=== PATIENT | female | born 1980 | race Caucasian/White ===

== ENCOUNTER 2022-08-15 15:30 | Outpatient (CLI) | payer MEDICAID, SELFPAY | END 2022-08-15 15:31 | disposition home or self-care (01) | PROVIDERS: Visit Provider Family Medicine | DX: S09.93XA Unspecified injury of face, initial encounter (principal); W01.0XXA Fall on same level from slipping, tripping and stumbling without subsequent striking against object, initial encounter; Y92.009 Unspecified place in unspecified non-institutional (private) residence as the place of occurrence of the external cause | CPT/HCPCS: A0998 ==

== ENCOUNTER 2022-11-11 20:39 | Emergency (ER) | payer SELFPAY ==
[2022-11-11 20:54] VITALS: BP 171/97; PULSE 102; RESP 20; TEMP 36.3; O2SAT 86
--- NOTE | 2022-11-11 21:06 | ED.NURSE ---
Pt brought back to [facility].
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
[2022-11-11 21:56] VITALS: BP 143/80; PULSE 88; O2SAT 86
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
== END 2022-11-11 23:15 | disposition home or self-care (01) ==
PROVIDERS: Emergency Provider Emergency Medicine; PCP Family Medicine
DX: M54.9 Dorsalgia, unspecified (principal); V43.62XA Car passenger injured in collision with other type car in traffic accident, initial encounter
CPT/HCPCS: 72131; 99283; 99284

== ENCOUNTER 2023-01-15 14:32 | Outpatient (CLI) | payer MEDICAID, SELFPAY | END 2023-01-15 14:33 | disposition home or self-care (01) | LOC: AMB 01-26 04:07 | PROVIDERS: PCP Family Medicine; Visit Provider Family Medicine | DX: R06.09 Other forms of dyspnea (principal); R41.82 Altered mental status, unspecified | CPT/HCPCS: A0425; A0427 ==

== ENCOUNTER 2023-01-15 15:28 | Emergency (ER) | payer MEDICAID, SELFPAY ==
[2023-01-15] VITALS (54 sets, daily range): BP systolic 86–166; BP diastolic 25–104; PULSE 82–126; RESP 11–32; TEMP 36.1; O2SAT 80–99; BMI 43.1
--- NOTE | 2023-01-15 | CRLHL7_ITS ---
For Patients: As a result of the Century Cures Act, medical imaging exams and procedure reports are released immediately into your electronic medical record. You may view this report before your referring provider. If you have questions, please contact your health care provider. INDICATION: Intubation. TECHNIQUE: Chest 1 views. COMPARISON: Same day. FINDINGS: Endotracheal tube with tip 1.8 cm above the ju. Lungs: Normal lung volume. Stable basilar heterogeneous airspace disease. Vascular redistribution. Pleura: Stable pleural spaces. Heart and Mediastinum: Normal heart size. The great vessels of the thorax are unremarkable. Bones: Stable osseous structures. IMPRESSION: Endotracheal tube with tip 1.8 cm above the ju. Dictated by Justin De Jesus MD @ 01/15/2023 7:41:07 PM (Electronically Signed)
--- NOTE | 2023-01-15 15:46 | CRLHL7_ITS ---
For Patients: As a result of the Century Cures Act, medical imaging exams and procedure reports are released immediately into your electronic medical record. You may view this report before your referring provider. If you have questions, please contact your health care provider. INDICATION: Shortness of breath. TECHNIQUE: Chest 1 views. COMPARISON: None. FINDINGS: Cardiovasculature and mediastinum: Heart size and vasculature are normal in caliber and appearance. Lungs and pleural spaces: Central bibasilar opacity consistent with pneumonia in the correct clinical setting. Bones and soft tissues: No significant findings. IMPRESSION: Central bibasilar opacity consistent with pneumonia in the correct clinical setting. Aspiration pneumonitis is included in the differential. Dictated by Jimmy Bundy MD @ 01/15/2023 4:52:40 PM (Electronically Signed)
--- NOTE | 2023-01-15 16:12 | ED.GENADULT ---
HPI - General Adult General Chief complaint: Shortness of Breath/Dyspnea Stated complaint: Low O2 Time Seen by Provider: 01/15/23 15:44 Source: EMS and RN notes reviewed Mode of arrival: EMS Limitations: altered mental status History of Present Illness HPI narrative: Patient is a 42-year-old woman brought in by EMS with a history of drug alcohol abuse, she lives at the [facility] in [place] which is an assisted living. They apparently went to check on her this afternoon found her to be somewhat lethargic, checked an O2 sat and it was in the 70s on room air. EMS was called. She was noted to be wheezy, was given a DuoNeb, sats briefly improved. She was in the mid 90s on 10 L of oxygen by face mask. She was not able to provide any history when I initially saw her, although she did open her eyes and make noises when asked her questions. Later on, she became more alert, she still was not overly forthcoming and answers to questions but was able to verbalize that she did not want me to take her credit card or id or pill bottle which she had talked into her brought, she said that she wanted to hold onto her own things. She did not answer questions regarding the pain, she denies recent illness, cough, fever. She denies a history of heart failure or being on a diuretic. Related Data Allergies Allergy/AdvReac Type Severity Reaction Status Date / Time No Known Drug Allergies Allergy Verified 01/15/23 15:30 Review of Systems Status of ROS: Reports: unobtainable due to mental status [facility] Social History Smoking Status: Current every day smoker What tobacco products do you use: cigarettes Do you use any of these nicotine containing products: None Second hand tobacco smoke exposure: No How often do you have a drink containing alcohol: 2-3 times a week AUDIT-C Alcohol total score: 3 Non-prescribed substance use: amphetamines/methamphetamines Non-prescribed substance use details: Unable to give accurate history regarding current use service: No Exam Narrative: Exam Narrative: Vital signs as noted above. In general, an somnolent, obese woman, respiratory distress. Head: Normocephalic, atraumatic. Eyes: Pupils are midpoint and reactive. Conjunctivae are normal. ENT: Mucous membranes are moist. Neck: Supple without lymphadenopathy. No stridor. Heart: Tachycardic and regular, no obvious murmur although exam was somewhat limited due to respiratory noise. Lungs: Anteriorly she has some crackles, posterior, she has diffuse wheezes and rhonchi, no obvious rales. Tachypneic. Abdomen: Obese and soft, seemingly nontender. Extremities: Her legs are large, she does not have pitting edema but may have a little bit of nonpitting edema in her feet. Pulses are intact. Distal CMS is normal. Neurologic: Patient is somnolent, responds to voice, opens her eyes, as mentioned she is able to verbalize things when she chooses, if left to herself she does doze off. Affect: Not applicable Skin: Slightly diaphoretic, no obvious rashes. Const: Vital Signs, click to edit/add: Vital Signs - 24 hr 01/15/23 15:31 01/15/23 15:44 01/15/23 15:44 Temperature 97.0 F L Pulse Rate Pulse Rate [Right Pulse Oximeter] 105 H Respiratory Rate 32 H Blood Pressure Blood Pressure [Le ft Upper Arm] 96/67 Pulse Oximetry 93 93 93 Oxygen Delivery Me thod Non Rebreather Mas k Non Rebreather Mas k Oxygen Flow Rate 10 Fraction of Inspir ed Oxygen 01/15/23 16:30 01/15/23 17:04 01/15/23 17:20 Temperature Pulse Rate 99 105 H Pulse Rate [Right Pulse Oximeter] Respiratory Rate Blood Pressure Blood Pressure [Le ft Upper Arm] Pulse Oximetry 95 93 Oxygen Delivery Me thod Oxygen Flow Rate Fraction of Inspir ed Oxygen 0.40 01/15/23 17:30 01/15/23 17:34 01/15/23 17:37 Temperature Pulse Rate 112 H 108 H 106 H Pulse Rate [Right Pulse Oximeter] Respiratory Rate Blood Pressure 86/75 L Blood Pressure [Le ft Upper Arm] Pulse Oximetry 92 87 L 97 Oxygen Delivery Me thod Oxygen Flow Rate Fraction of Inspir ed Oxygen 01/15/23 17:43 01/15/23 17:45 01/15/23 17:46 Temperature Pulse Rate 99 95 95 Pulse Rate [Right Pulse Oximeter] Respiratory Rate Blood Pressure 97/70 95/25 L Blood Pressure [Le ft Upper Arm] Pulse Oximetry 96 96 97 Oxygen Delivery Me thod Oxygen Flow Rate Fraction of Inspir ed Oxygen 01/15/23 17:47 01/15/23 18:00 01/15/23 18:01 Temperature Pulse Rate 96 87 89 Pulse Rate [Right Pulse Oximeter] Respiratory Rate Blood Pressure 109/70 106/68 Blood Pressure [Le ft Upper Arm] Pulse Oximetry 96 95 94 Oxygen Delivery Me thod Oxygen Flow Rate Fraction of Inspir ed Oxygen 01/15/23 18:15 01/15/23 18:20 01/15/23 18:30 Temperature Pulse Rate 87 83 85 Pulse Rate [Right Pulse Oximeter] Respiratory Rate Blood Pressure 104/71 Blood Pressure [Le ft Upper Arm] Pulse Oximetry 93 94 94 Oxygen Delivery Me thod Oxygen Flow Rate Fraction of Inspir ed Oxygen 01/15/23 18:31 01/15/23 18:46 01/15/23 18:50 Temperature Pulse Rate 82 120 H Pulse Rate [Right Pulse Oximeter] Respiratory Rate Blood Pressure 108/75 126/103 H Blood Pressure [Le ft Upper Arm] Pulse Oximetry 93 90 Oxygen Delivery Me thod Oxygen Flow Rate Fraction of Inspir ed Oxygen 01/15/23 18:51 01/15/23 18:54 01/15/23 18:59 Temperature Pulse Rate 123 H 126 H 126 H Pulse Rate [Right Pulse Oximeter] Respiratory Rate 11 L Blood Pressure 166/102 H 154/104 H 144/101 H Blood Pressure [Le ft Upper Arm] Pulse Oximetry 94 97 90 Oxygen Delivery Me thod Oxygen Flow Rate Fraction of Inspir ed Oxygen 01/15/23 19:00 01/15/23 19:01 01/15/23 19:06 Temperature Pulse Rate 125 H 125 H 114 H Pulse Rate [Right Pulse Oximeter] Respiratory Rate 14 13 12 Blood Pressure 142/86 H 110/75 Blood Pressure [Le ft Upper Arm] Pulse Oximetry 92 97 98 Oxygen Delivery Me thod Oxygen Flow Rate Fraction of Inspir ed Oxygen 01/15/23 19:11 01/15/23 19:15 01/15/23 19:16 Temperature Pulse Rate 120 H 120 H 118 H Pulse Rate [Right Pulse Oximeter] Respiratory Rate 19 14 18 Blood Pressure 125/87 114/73 Blood Pressure [Le ft Upper Arm] Pulse Oximetry 80 L 92 93 Oxygen Delivery Me thod Oxygen Flow Rate Fraction of Inspir ed Oxygen 01/15/23 19:21 01/15/23 19:22 01/15/23 19:26 Temperature Pulse Rate 108 H 112 H 114 H Pulse Rate [Right Pulse Oximeter] Respiratory Rate 16 16 17 Blood Pressure 90/54 L 92/56 L 101/68 Blood Pressure [Le ft Upper Arm] Pulse Oximetry 94 94 94 Oxygen Delivery Me thod Oxygen Flow Rate Fraction of Inspir ed Oxygen 01/15/23 19:30 01/15/23 19:31 01/15/23 19:36 Temperature Pulse Rate 116 H 115 H 112 H Pulse Rate [Right Pulse Oximeter] Respiratory Rate 18 18 23 Blood Pressure 113/68 103/60 Blood Pressure [Le ft Upper Arm] Pulse Oximetry 94 94 95 Oxygen Delivery Me thod Oxygen Flow Rate Fraction of Inspir ed Oxygen 01/15/23 19:37 01/15/23 19:41 01/15/23 19:45 Temperature Pulse Rate 111 H 112 H 120 H Pulse Rate [Right Pulse Oximeter] Respiratory Rate 23 23 23 Blood Pressure 106/64 Blood Pressure [Le ft Upper Arm] Pulse Oximetry 94 95 96 Oxygen Delivery Me thod Oxygen Flow Rate Fraction of Inspir ed Oxygen 01/15/23 19:46 01/15/23 19:51 01/15/23 19:56 Temperature Pulse Rate 117 H 111 H 107 H Pulse Rate [Right Pulse Oximeter] Respiratory Rate 23 23 23 Blood Pressure 105/73 92/59 L 96/54 L Blood Pressure [Le ft Upper Arm] Pulse Oximetry 96 96 97 Oxygen Delivery Me thod Oxygen Flow Rate Fraction of Inspir ed Oxygen 01/15/23 20:00 01/15/23 20:01 01/15/23 20:06 Temperature Pulse Rate 106 H 107 H 105 H Pulse Rate [Right Pulse Oximeter] Respiratory Rate 23 23 23 Blood Pressure 90/63 91/55 L Blood Pressure [Le ft Upper Arm] Pulse Oximetry 98 98 98 Oxygen Delivery Me thod Oxygen Flow Rate Fraction of Inspir ed Oxygen 01/15/23 20:11 01/15/23 20:15 01/15/23 20:16 Temperature Pulse Rate 105 H 104 H 104 H Pulse Rate [Right Pulse Oximeter] Respiratory Rate 23 23 23 Blood Pressure 92/57 L 92/59 L Blood Pressure [Le ft Upper Arm] Pulse Oximetry 98 98 98 Oxygen Delivery Me thod Oxygen Flow Rate Fraction of Inspir ed Oxygen 08/17/23 20:21 01/15/23 20:24 01/15/23 20:26 Temperature Pulse Rate 104 H 104 H 103 H Pulse Rate [Right Pulse Oximeter] Respiratory Rate 23 23 23 Blood Pressure 95/60 93/60 92/60 Blood Pressure [Le ft Upper Arm] Pulse Oximetry 98 99 98 Oxygen Delivery Me thod Oxygen Flow Rate Fraction of Inspir ed Oxygen 01/15/23 20:30 01/15/23 20:31 01/15/23 20:36 Temperature Pulse Rate 103 H 103 H 102 H Pulse Rate [Right Pulse Oximeter] Respiratory Rate 23 23 23 Blood Pressure 99/59 L 98/55 L Blood Pressure [Le ft Upper Arm] Pulse Oximetry 98 99 99 Oxygen Delivery Me thod Oxygen Flow Rate Fraction of Inspir ed Oxygen 01/15/23 20:41 01/15/23 20:45 Temperature Pulse Rate 101 H Pulse Rate [Right Pulse Oximeter] Respiratory Rate 23 23 Blood Pressure 100/64 Blood Pressure [Le ft Upper Arm] Pulse Oximetry 97 Oxygen Delivery Me thod Oxygen Flow Rate Fraction of Inspir ed Oxygen Documenting provider has reviewed patient's vital signs: yes Course Course Hospital Course: On initial arrival RT was called and she was switched from oxygen by face mask to BiPAP initially at 15/10, she is increased to 18/10 on 50% FiO2 at this point. Her O2 sats are in the mid 90s and her breathing is less labored. Labs pending. Portable chest x-ray by my review looks consistent with pulmonary edema. Bedside ultrasound is challenging given body habitus and positioning, but I do not see evidence of pericardial effusion, right ventricular dilation, or obvious significant decreased left ventricular function. I have ordered an albuterol neb as well as 20 mg of Lasix. BiPAP I think his improved her status, I am hesitant to start nitroglycerin at this point given tenuous blood pressures of 100-120 systolic. Radiology read of her x-ray was of bilateral central opacities more consistent with pneumonia the right setting or aspiration pneumonitis could be a consideration as well. Clinically aspiration pneumonitis certainly is possible, she may have overdosed on some substance or another. I tried to talk with her about her drug use, she initially said she did know what I was talking about, then she said that she ?takes whenever she feels like taking? but was not more specific than that. She declined to give me any information as to whether she has used drugs in the past day or 2. Her white blood cell count returned elevated at 15, lactate was normal, CRP was elevated at 44. Her BNP was also elevated at 4300, I did initially give her 500 mL of normal saline after the radiology read was more consistent with pneumonitis, but I stop short of giving her more fluids based on the significantly elevated BNP, it was difficult to see her IVC again due to body habitus and difficulty in positioning and cooperation. Plan had been to admit her to the hospital here, cultures were drawn, she was given Zosyn, and had been stable on BiPAP. However, she became more alert, she was no longer willing to wear the BiPAP, she took that off, and then actually was becoming increasingly difficult to manage, would not keep oxygen on, sat monitor, kept trying to get out of bed. Therefore, I gave her a mg of Ativan. Shortly after that she became significantly less responsive. I repeated a blood gas, she had a mild acidosis at that point with a pH of 7.3, pCO2 was up to 59. I did put her back on BiPAP for a little bit, I then gave her 1st Narcan, 1 mg and when there was no response to that I gave her flumazenil to reverse the Ativan. Initially she did not respond any of that, but about 10-15 minutes later she started to wake up. Then she became extremely agitated and again very difficult to manage in terms of oxygen, BiPAP etcetera. Her O2 sats on room air were in the upper 70s to low 80s, she clearly needed to be able to be managed in terms of oxygenation and ventilation and therefore decision was made to intubate. Drug screen did return negative. When she was more sedated, we were able to get the pill bottle that she had on her person, and she had 3 Suboxone tablets in that bottle. It is possible that she took an unintentional or intentional overdose of Suboxone. Procedure note: Patient was on oximetry, end-tidal CO2, passive oxygenation by nasal cannula. She was given ketamine 100 mg IV initially just to get her under control enough that we could pre oxygenate her. We put in a nasal airway, and she was preoxygenated to an O2 sat of 98%. She was positioned, and then given 125 mg of succinylcholine IV. She was then intubated with a 7.5 tube without complication. This was confirmed by chest x-ray, end-tidal CO2, as well as breath sounds. Initially she did have decreased sounds on the left and so the tube was pulled back a little bit with good aeration of both sides. An NG tube was placed. We had already placed a [place]. She received additional ketamine for sedation initially as the flumazenil had not yet worn off. She also had 10 mg of vecuronium and was placed arm the ventilator. She did have thick purulent secretions from her ET tube in these were suctioned. She tolerated intubation overall well, no hypoxia or significant hypotension was noted. We did have Levophed at the bedside but did not end up needing to start that. She had 2 additional doses of ketamine, and after the flumazenil had had an hour so to wear off I did give her 2 mg of Versed as well. Urinalysis was unremarkable. Aspirin Tylenol and alcohol levels were negative. COVID was negative. Troponin was 0.01. Her EKG when she initially arrived did not show any significant findings. Sinus tachycardia. She was accepted at [facility], there was a bed delay, we tried to find other available beds but by the time which I heard back from [facility] had accepted her and she was transferred by air to [facility] ICU. Critical care time 120 minutes. Vital Signs Vital signs: Initial Vital Signs Temperature 97.0 F L 01/15/23 15:31 Temperature Source Temporal Artery Scan 01/15/23 15:31 Pulse Rate 105 H 01/15/23 15:31 Pulse Rhythm Regular 01/15/23 15:31 Pulse Strength 3+ Normal 01/15/23 15:31 Respiratory Rate 32 H 01/15/23 15:31 Blood Pressure 96/67 01/15/23 15:31 Blood Pressure Mean 76 01/15/23 15:31 Blood Pressure Position Supine 01/15/23 15:31 Pulse Oximetry 93 01/15/23 15:31 Oxygen Delivery Method Non Rebreather Mask 01/15/23 15:31 Vital Signs Temperature 97.0 F L 01/15/23 15:31 Pulse Rate 105 H 01/15/23 15:31 Respiratory Rate 32 H 01/15/23 15:31 Blood Pressure 96/67 01/15/23 15:31 Pulse Oximetry 93 01/15/23 15:31 Oxygen Delivery Method Non Rebreather Mask 01/15/23 15:31 Temperature 97.0 F L 01/15/23 15:31 Pulse Rate 101 H 01/15/23 20:41 Respiratory Rate 23 01/15/23 20:45 Blood Pressure 100/64 01/15/23 20:41 Pulse Oximetry 97 01/15/23 20:41 Oxygen Delivery Method Non Rebreather Mask 01/15/23 15:44 Oxygen Flow Rate 10 01/15/23 15:44 Fraction of Inspired Oxygen 0.40 01/15/23 16:30 Medical Decision Making Lab Data Labs: Lab Results 01/15/23 01/15/23 01/15/23 Range/Units 16:00 16:00 16:00 WBC 15.08 H (4.50-11.00) K/uL RBC 4.22 (4.00-5.20) m/uL Hgb 10.6 L (12.0-16.0) gm/dL Hct 35.2 (33.0-51.0) % MCV 83 (80-100) fL MCH 25 L (26-34) pg MCHC 30 L (32-36) gm/dL RDW Coeff of Maeve 21.2 H (11.5-15.5) % Plt Count 358 (140-440) K/uL Neut % (Auto) 78.3 H (42.0-72.0) % Lymph % (Auto) 14.5 L (20-44) % [place] % (Auto) 6.7 (0.0-11.0) % Eos % (Auto) 0.1 (0.0-7.0) % Baso % (Auto) 0.1 (0.0-3.0) % Neut # (Auto) 11.80 H (1.7-7.0) K/uL Lymph # (Auto) 2.20 (0.90-2.90) K/uL [place] # (Auto) 1.00 H (0.00-0.90) K/UL Eos # (Auto) 0.00 (0.00-0.50) K/uL Baso # (Auto) 0.00 (0.00-0.30) K/uL Abs Immat Gran (auto) 0.00 (0.00-0.30) K/uL Imm/Tot Granulo (auto) 0.3 % D-Dimer Quant (PE/DVT) 2.00 H (0.00-0.50) ug/ml VBG pH 7.324 (7.32-7.43) VBG pCO2 56 H (40-50) mmHG VBG pO2 53.1 H (25-47) mmHG VBG HCO3 29 H (21-28) mmol/L Sodium 138 (135-149) mmol/L Potassium 3.3 L (3.6-5.1) mmol/L Chloride 100 (96-114) mmol/L Carbon Dioxide 28 (20-32) mmol/L BUN 33 H (5-24) mg/dL Creatinine 1.4 (0.5-1.5) mg/dL Estimated Creat Clear 50.39 Estimated GFR 48 ml/min Glucose 96 (60-115) mg/dL Lactate 1.1 (0.5-1.9) mmol/L Calcium 8.6 (8.4-10.6) mg/dL Total Bilirubin 0.7 Cancelled (0.1-1.5) mg/dL Direct Bilirubin 0.4 Cancelled (0.0-0.5) mg/dL AST 41 H (12-35) U/L ALT (4-35) U/L Alkaline Phosphatase (40-150) U/L C-Reactive Protein (0.5-1.0) mg/dL NT-Pro-B Natriuret Pep pg/mL Total Protein (6.0-8.3) g/dL Albumin (3.3-5.0) g/dL Procalcitonin (<0.50) ng/mL TSH (0.270-4.200) uIU/mL Urine Color (Yellow) Urine Appearance (Clear) Urine pH (5.0-8.5) Ur Specific [place] (1.000-1.030) Urine Protein (Negative) Urine Glucose (UA) (Negative) Urine Ketones (Negative) Urine Blood (Negative) Urine Nitrite (Negative) Urine Bilirubin (Negative) Urine Urobilinogen (0.2-1.0) Ur Leukocyte Esterase (Negative) Urine RBC (0-2) Urine WBC (0-5) Ur Squamous Epith Cells (None-Few) Amorphous Sediment (None) Urine Bacteria (None) Salicylates (1.0-10) mg/dL Urine Opiates Screen (Negative) Ur Oxycodone Screen (Negative) Urine Methadone Screen (Negative) Ur Propoxyphene Screen (Negative) Acetaminophen (10.0-30.0) ug/mL Ur Barbiturates Screen (Negative) U Tricyclic Antidepress (Negative) Ur Phencyclidine Scrn (Negative) Ur Amphetamines Screen (Negative) U Methamphetamines Scrn (Negative) U Benzodiazepines Scrn (Negative) Urine Cocaine Screen (Negative) U Marijuana (THC) Screen (Negative) Ur Drug Screen Comment Ethyl Alcohol (0.01-0.03) % SARS-CoV-2 (PCR) (Negative) Influenza Type A (PCR) (Negative) Influenza Type B (PCR) (Negative) RSV (PCR) (Negative) Lab Acknowledgement POC Troponin I (0.01-0.04) ng/ml 01/15/23 01/15/23 01/15/23 Range/Units 16:00 16:00 16:00 WBC (4.50-11.00) K/uL RBC (4.00-5.20) m/uL Hgb (12.0-16.0) gm/dL Hct (33.0-51.0) % MCV (80-100) fL MCH (26-34) pg MCHC (32-36) gm/dL RDW Coeff of Maeve (11.5-15.5) % Plt Count (140-440) K/uL Neut % (Auto) (42.0-72.0) % Lymph % (Auto) (20-44) % [place] % (Auto) (0.0-11.0) % Eos % (Auto) (0.0-7.0) % Baso % (Auto) (0.0-3.0) % Neut # (Auto) (1.7-7.0) K/uL Lymph # (Auto) (0.90-2.90) K/uL [place] # (Auto) (0.00-0.90) K/UL Eos # (Auto) (0.00-0.50) K/uL Baso # (Auto) (0.00-0.30) K/uL Abs Immat Gran (auto) (0.00-0.30) K/uL Imm/Tot Granulo (auto) % D-Dimer Quant (PE/DVT) (0.00-0.50) ug/ml VBG pH (7.32-7.43) VBG pCO2 (40-50) mmHG VBG pO2 (25-47) mmHG VBG HCO3 (21-28) mmol/L Sodium (135-149) mmol/L Potassium (3.6-5.1) mmol/L Chloride (96-114) mmol/L Carbon Dioxide (20-32) mmol/L BUN (5-24) mg/dL Creatinine (0.5-1.5) mg/dL Estimated Creat Clear Estimated GFR ml/min Glucose (60-115) mg/dL Lactate (0.5-1.9) mmol/L Calcium (8.4-10.6) mg/dL Total Bilirubin (0.1-1.5) mg/dL Direct Bilirubin (0.0-0.5) mg/dL AST Cancelled (12-35) U/L ALT 35 Cancelled (4-35) U/L Alkaline Phosphatase 135 Cancelled (40-150) U/L C-Reactive Protein 44.9 H (0.5-1.0) mg/dL NT-Pro-B Natriuret Pep pg/mL Total Protein (6.0-8.3) g/dL Albumin (3.3-5.0) g/dL Procalcitonin (<0.50) ng/mL TSH (0.270-4.200) uIU/mL Urine Color (Yellow) Urine Appearance (Clear) Urine pH (5.0-8.5) Ur Specific [place] (1.000-1.030) Urine Protein (Negative) Urine Glucose (UA) (Negative) Urine Ketones (Negative) Urine Blood (Negative) Urine Nitrite (Negative) Urine Bilirubin (Negative) Urine Urobilinogen (0.2-1.0) Ur Leukocyte Esterase (Negative) Urine RBC (0-2) Urine WBC (0-5) Ur Squamous Epith Cells (None-Few) Amorphous Sediment (None) Urine Bacteria (None) Salicylates (1.0-10) mg/dL Urine Opiates Screen (Negative) Ur Oxycodone Screen (Negative) Urine Methadone Screen (Negative) Ur Propoxyphene Screen (Negative) Acetaminophen (10.0-30.0) ug/mL Ur Barbiturates Screen (Negative) U Tricyclic Antidepress (Negative) Ur Phencyclidine Scrn (Negative) Ur Amphetamines Screen (Negative) U Methamphetamines Scrn (Negative) U Benzodiazepines Scrn (Negative) Urine Cocaine Screen (Negative) U Marijuana (THC) Screen (Negative) Ur Drug Screen Comment Ethyl Alcohol (0.01-0.03) % SARS-CoV-2 (PCR) (Negative) Influenza Type A (PCR) (Negative) Influenza Type B (PCR) (Negative) RSV (PCR) (Negative) Lab Acknowledgement POC Troponin I (0.01-0.04) ng/ml 01/15/23 01/15/23 01/15/23 Range/Units 16:00 16:00 16:00 WBC (4.50-11.00) K/uL RBC (4.00-5.20) m/uL Hgb (12.0-16.0) gm/dL Hct (33.0-51.0) % MCV (80-100) fL MCH (26-34) pg MCHC (32-36) gm/dL RDW Coeff of Maeve (11.5-15.5) % Plt Count (140-440) K/uL Neut % (Auto) (42.0-72.0) % Lymph % (Auto) (20-44) % [place] % (Auto) (0.0-11.0) % Eos % (Auto) (0.0-7.0) % Baso % (Auto) (0.0-3.0) % Neut # (Auto) (1.7-7.0) K/uL Lymph # (Auto) (0.90-2.90) K/uL [place] # (Auto) (0.00-0.90) K/UL Eos # (Auto) (0.00-0.50) K/uL Baso # (Auto) (0.00-0.30) K/uL Abs Immat Gran (auto) (0.00-0.30) K/uL Imm/Tot Granulo (auto) % D-Dimer Quant (PE/DVT) (0.00-0.50) ug/ml VBG pH (7.32-7.43) VBG pCO2 (40-50) mmHG VBG pO2 (25-47) mmHG VBG HCO3 (21-28) mmol/L Sodium (135-149) mmol/L Potassium (3.6-5.1) mmol/L Chloride (96-114) mmol/L Carbon Dioxide (20-32) mmol/L BUN (5-24) mg/dL Creatinine (0.5-1.5) mg/dL Estimated Creat Clear Estimated GFR ml/min Glucose (60-115) mg/dL Lactate (0.5-1.9) mmol/L Calcium (8.4-10.6) mg/dL Total Bilirubin (0.1-1.5) mg/dL Direct Bilirubin (0.0-0.5) mg/dL AST (12-35) U/L ALT (4-35) U/L Alkaline Phosphatase (40-150) U/L C-Reactive Protein Cancelled (0.5-1.0) mg/dL NT-Pro-B Natriuret Pep 4300 Cancelled pg/mL Total Protein 7.4 Cancelled (6.0-8.3) g/dL Albumin 3.7 (3.3-5.0) g/dL Procalcitonin (<0.50) ng/mL TSH (0.270-4.200) uIU/mL Urine Color (Yellow) Urine Appearance (Clear) Urine pH (5.0-8.5) Ur Specific [place] (1.000-1.030) Urine Protein (Negative) Urine Glucose (UA) (Negative) Urine Ketones (Negative) Urine Blood (Negative) Urine Nitrite (Negative) Urine Bilirubin (Negative) Urine Urobilinogen (0.2-1.0) Ur Leukocyte Esterase (Negative) Urine RBC (0-2) Urine WBC (0-5) Ur Squamous Epith Cells (None-Few) Amorphous Sediment (None) Urine Bacteria (None) Salicylates (1.0-10) mg/dL Urine Opiates Screen (Negative) Ur Oxycodone Screen (Negative) Urine Methadone Screen (Negative) Ur Propoxyphene Screen (Negative) Acetaminophen (10.0-30.0) ug/mL Ur Barbiturates Screen (Negative) U Tricyclic Antidepress (Negative) Ur Phencyclidine Scrn (Negative) Ur Amphetamines Screen (Negative) U Methamphetamines Scrn (Negative) U Benzodiazepines Scrn (Negative) Urine Cocaine Screen (Negative) U Marijuana (THC) Screen (Negative) Ur Drug Screen Comment Ethyl Alcohol (0.01-0.03) % SARS-CoV-2 (PCR) (Negative) Influenza Type A (PCR) (Negative) Influenza Type B (PCR) (Negative) RSV (PCR) (Negative) Lab Acknowledgement POC Troponin I (0.01-0.04) ng/ml 01/15/23 01/15/23 01/15/23 Range/Units 16:00 16:00 16:14 WBC (4.50-11.00) K/uL RBC (4.00-5.20) m/uL Hgb (12.0-16.0) gm/dL Hct (33.0-51.0) % MCV (80-100) fL MCH (26-34) pg MCHC (32-36) gm/dL RDW Coeff of Maeve (11.5-15.5) % Plt Count (140-440) K/uL Neut % (Auto) (42.0-72.0) % Lymph % (Auto) (20-44) % [place] % (Auto) (0.0-11.0) % Eos % (Auto) (0.0-7.0) % Baso % (Auto) (0.0-3.0) % Neut # (Auto) (1.7-7.0) K/uL Lymph # (Auto) (0.90-2.90) K/uL [place] # (Auto) (0.00-0.90) K/UL Eos # (Auto) (0.00-0.50) K/uL Baso # (Auto) (0.00-0.30) K/uL Abs Immat Gran (auto) (0.00-0.30) K/uL Imm/Tot Granulo (auto) % D-Dimer Quant (PE/DVT) (0.00-0.50) ug/ml VBG pH (7.32-7.43) VBG pCO2 (40-50) mmHG VBG pO2 (25-47) mmHG VBG HCO3 (21-28) mmol/L Sodium (135-149) mmol/L Potassium (3.6-5.1) mmol/L Chloride (96-114) mmol/L Carbon Dioxide (20-32) mmol/L BUN (5-24) mg/dL Creatinine (0.5-1.5) mg/dL Estimated Creat Clear Estimated GFR ml/min Glucose (60-115) mg/dL Lactate (0.5-1.9) mmol/L Calcium (8.4-10.6) mg/dL Total Bilirubin (0.1-1.5) mg/dL Direct Bilirubin (0.0-0.5) mg/dL AST (12-35) U/L ALT (4-35) U/L Alkaline Phosphatase (40-150) U/L C-Reactive Protein (0.5-1.0) mg/dL NT-Pro-B Natriuret Pep pg/mL Total Protein (6.0-8.3) g/dL Albumin Cancelled (3.3-5.0) g/dL Procalcitonin 0.49 (<0.50) ng/mL TSH 2.910 (0.270-4.200) uIU/mL Urine Color (Yellow) Urine Appearance (Clear) Urine pH (5.0-8.5) Ur Specific [place] (1.000-1.030) Urine Protein (Negative) Urine Glucose (UA) (Negative) Urine Ketones (Negative) Urine Blood (Negative) Urine Nitrite (Negative) Urine Bilirubin (Negative) Urine Urobilinogen (0.2-1.0) Ur Leukocyte Esterase (Negative) Urine RBC (0-2) Urine WBC (0-5) Ur Squamous Epith Cells (None-Few) Amorphous Sediment (None) Urine Bacteria (None) Salicylates (1.0-10) mg/dL Urine Opiates Screen (Negative) Ur Oxycodone Screen (Negative) Urine Methadone Screen (Negative) Ur Propoxyphene Screen (Negative) Acetaminophen (10.0-30.0) ug/mL Ur Barbiturates Screen (Negative) U Tricyclic Antidepress (Negative) Ur Phencyclidine Scrn (Negative) Ur Amphetamines Screen (Negative) U Methamphetamines Scrn (Negative) U Benzodiazepines Scrn (Negative) Urine Cocaine Screen (Negative) U Marijuana (THC) Screen (Negative) Ur Drug Screen Comment Ethyl Alcohol < 0.01 L Cancelled (0.01-0.03) % SARS-CoV-2 (PCR) Negative SARS-CoV-2 (Negative) Influenza Type A (PCR) Negative PCR FLU A (Negative) Influenza Type B (PCR) Negative PCR FLU B (Negative) RSV (PCR) Negative PCR RSV (Negative) Lab Acknowledgement POC Troponin I 0.01 (0.01-0.04) ng/ml 01/15/23 01/15/23 01/15/23 Range/Units 18:00 18:15 18:52 WBC (4.50-11.00) K/uL RBC (4.00-5.20) m/uL Hgb (12.0-16.0) gm/dL Hct (33.0-51.0) % MCV (80-100) fL MCH (26-34) pg MCHC (32-36) gm/dL RDW Coeff of Maeve (11.5-15.5) % Plt Count (140-440) K/uL Neut % (Auto) (42.0-72.0) % Lymph % (Auto) (20-44) % [place] % (Auto) (0.0-11.0) % Eos % (Auto) (0.0-7.0) % Baso % (Auto) (0.0-3.0) % Neut # (Auto) (1.7-7.0) K/uL Lymph # (Auto) (0.90-2.90) K/uL [place] # (Auto) (0.00-0.90) K/UL Eos # (Auto) (0.00-0.50) K/uL Baso # (Auto) (0.00-0.30) K/uL Abs Immat Gran (auto) (0.00-0.30) K/uL Imm/Tot Granulo (auto) % D-Dimer Quant (PE/DVT) (0.00-0.50) ug/ml VBG pH 7.304 L (7.32-7.43) VBG pCO2 59 H (40-50) mmHG VBG pO2 52.7 H (25-47) mmHG VBG HCO3 30 H (21-28) mmol/L Sodium (135-149) mmol/L Potassium (3.6-5.1) mmol/L Chloride (96-114) mmol/L Carbon Dioxide (20-32) mmol/L BUN (5-24) mg/dL Creatinine (0.5-1.5) mg/dL Estimated Creat Clear Estimated GFR ml/min Glucose (60-115) mg/dL Lactate (0.5-1.9) mmol/L Calcium (8.4-10.6) mg/dL Total Bilirubin (0.1-1.5) mg/dL Direct Bilirubin (0.0-0.5) mg/dL AST (12-35) U/L ALT (4-35) U/L Alkaline Phosphatase (40-150) U/L C-Reactive Protein (0.5-1.0) mg/dL NT-Pro-B Natriuret Pep pg/mL Total Protein (6.0-8.3) g/dL Albumin (3.3-5.0) g/dL Procalcitonin (<0.50) ng/mL TSH (0.270-4.200) uIU/mL Urine Color Yellow (Yellow) Urine Appearance Clear (Clear) Urine pH 5.5 (5.0-8.5) Ur Specific [place] 1.015 (1.000-1.030) Urine Protein 2+ A (Negative) Urine Glucose (UA) Negative (Negative) Urine Ketones Negative (Negative) Urine Blood Negative (Negative) Urine Nitrite Negative (Negative) Urine Bilirubin Negative (Negative) Urine Urobilinogen 2.0 A (0.2-1.0) Ur Leukocyte Esterase Negative (Negative) Urine RBC 0-2 (0-2) Urine WBC 0-2 (0-5) Ur Squamous Epith Cells None (None-Few) Amorphous Sediment Few A (None) Urine Bacteria Few A (None) Salicylates < 1.0 L (1.0-10) mg/dL Urine Opiates Screen Negative (Negative) Ur Oxycodone Screen Negative (Negative) Urine Methadone Screen Negative (Negative) Ur Propoxyphene Screen Negative (Negative) Acetaminophen < 10.0 L (10.0-30.0) ug/mL Ur Barbiturates Screen Negative (Negative) U Tricyclic Antidepress Negative (Negative) Ur Phencyclidine Scrn Negative (Negative) Ur Amphetamines Screen Negative (Negative) U Methamphetamines Scrn Negative (Negative) U Benzodiazepines Scrn Negative (Negative) Urine Cocaine Screen Negative (Negative) U Marijuana (THC) Screen Negative (Negative) Ur Drug Screen Comment See Note Ethyl Alcohol (0.01-0.03) % SARS-CoV-2 (PCR) (Negative) Influenza Type A (PCR) (Negative) Influenza Type B (PCR) (Negative) RSV (PCR) (Negative) Lab Acknowledgement Test Added POC Troponin I (0.01-0.04) ng/ml Discharge Plan Discharge Clinical Impression: Overdose, Respiratory failure, Pneumonitis Patient Disposition: [facility] Stand Alone Forms: [address] Info Instructions
[2023-01-15 16:16] LABS: HCO3 VBG 29 mmol/L (21-28); Lactate Sepsis w/Reflex* 1.1 mmol/L (0.5-1.9); PCO2 VBG 56 mmHG (40-50); PO2 VBG 53.1 mmHG (25-47); pH VBG 7.324 (7.32-7.43)
[2023-01-15 16:25] LABS: Troponin, Point-of-Care* 0.01 ng/ml (0.01-0.04)
[2023-01-15 16:28] LABS: Basophils Percent Auto 0.1 % (0.0-3.0); Eosinophils Percent Auto 0.1 % (0.0-7.0); Hematocrit 35.2 % (33.0-51.0); Hemoglobin* 10.6 gm/dL (12.0-16.0); Immature Granulocytes Pct Auto 0.3 %; Lymphocytes Percent Auto 14.5 % (20-44); Mean Corpuscular HGB Conc 30 gm/dL (32-36); Mean Corpuscular Hemoglobin 25 pg (26-34); Mean Corpuscular Volume 83 fL (80-100); Monocytes Percent Auto 6.7 % (0.0-11.0); Neutrophils Percent Auto 78.3 % (42.0-72.0); Platelet Count* 358 K/uL (140-440); RDW Coefficient of Variation % 21.2 % (11.5-15.5); Red Blood Count 4.22 m/uL (4.00-5.20); White Blood Count* 15.08 K/uL (4.50-11.00)
[2023-01-15] MEDS: FUROSEMIDE 10 MG/ML inj 20 MG IVP (16:29)
[2023-01-15 16:31] LABS: Slide Review Reflex No
[2023-01-15 16:47] LABS: Albumin* 3.7 g/dL (3.3-5.0); Chloride* 100 mmol/L (96-114); Sodium* 138 mmol/L (135-149)
[2023-01-15 16:48] LABS: Potassium* 3.3 mmol/L (3.6-5.1)
[2023-01-15 16:49] LABS: Creatinine* 1.4 mg/dL (0.5-1.5); Est. Creatinine Clearance* 50.39; Estimated Glomerular Filt Rate 48 ml/min
[2023-01-15 16:50] LABS: Alanine Aminotransferase* 35 U/L (4-35); Alkaline Phosphatase* 135 U/L (40-150); Aspartate Amino Transferase* 41 U/L (12-35); Bilirubin Direct* 0.4 mg/dL (0.0-0.5); Bilirubin Total* 0.7 mg/dL (0.1-1.5); Blood Urea Nitrogen* 33 mg/dL (5-24); Carbon Dioxide* 28 mmol/L (20-32); Total Protein* 7.4 g/dL (6.0-8.3)
[2023-01-15 16:51] LABS: Calcium* 8.6 mg/dL (8.4-10.6); Glucose* 96 mg/dL (60-115)
[2023-01-15 16:58] LABS: Ethanol* < 0.01 % (0.01-0.03)
[2023-01-15 16:59] LABS: PCR FLU A Negative PCR FLU A (Negative); PCR FLU B Negative PCR FLU B (Negative); PCR RSV Negative PCR RSV (Negative)
[2023-01-15 17:04] LABS: NT Pro B Type NatriureticPept* 4300 pg/mL
[2023-01-15 17:09] LABS: SARS PCR* Negative SARS-CoV-2 (Negative)
[2023-01-15] MEDS: PIPERACILLIN/TAZOBACTAM 3.375 GM in 0.9 % SODIUM CHLORIDE Mini-bag 100 ML IVPB (17:29)
[2023-01-15] MEDS: 0.9 % SODIUM CHLORIDE 1000 ml 1,000 ML IV (17:29)
[2023-01-15] MEDS: LORazepam 2 MG/ML inj 1 MG IVP (17:35)
[2023-01-15 17:43] LABS: C Reactive Protein* 44.9 mg/dL (0.5-1.0)
[2023-01-15 18:17] LABS: Appearance Urine Clear (Clear); Bilirubin Urine Negative (Negative); Blood Urine Negative (Negative); Color Urine Yellow (Yellow); Glucose Urine Negative (Negative); Ketones Urine Negative (Negative); Leukocyte Esterase Urine Negative (Negative); Nitrite Urine Negative (Negative); Protein Urine 2+ (Negative); Specific Gravity Urine 1.015 (1.000-1.030); pH Urine 5.5 (5.0-8.5)
[2023-01-15] MEDS: NALOXONE 1 MG/ML SYRINGE IV (18:17)
[2023-01-15 18:24] LABS: Amphetamine Screen Urine Negative (Negative); Barbiturate Screen Urine Negative (Negative); Benzodiazepines Screen Urine Negative (Negative); Cannabinoid Screen Urine Negative (Negative); Cocaine Screen Urine Negative (Negative); Methadone Screen Urine Negative (Negative); Methamphetamines Screen Urine Negative (Negative); Opiate Screen Urine Negative (Negative); Oxycodone Screen Urine Negative (Negative); Phencyclidine Screen Urine Negative (Negative); Tricyclic Antidepressant Urine Negative (Negative)
[2023-01-15 18:24] LABS: HCO3 VBG 30 mmol/L (21-28); PCO2 VBG 59 mmHG (40-50); PO2 VBG 52.7 mmHG (25-47); pH VBG 7.304 (7.32-7.43)
[2023-01-15 18:35] LABS: RBC Urine 0-2 (0-2)
[2023-01-15 18:36] LABS: Amorphous Sediment Urine Few; Bacteria Urine Few; WBC Urine 0-2 (0-5)
[2023-01-15] MEDS: ONDANSETRON 2 MG/ML inj 4 MG IVP (18:45)
[2023-01-15] MEDS: KETAMINE HCL 100 MG/ML inj IVPB ×2 (18:47→19:20)
[2023-01-15] MEDS: 0.9 % SODIUM CHLORIDE 500 ML 500 ML IV (18:52)
[2023-01-15] MEDS: SUCCINYLCHOLINE 20 MG/ML INJ 125 MG IVP (18:55)
[2023-01-15 18:59] LABS: Acetaminophen* < 10.0 ug/mL (10.0-30.0); Salicylate* < 1.0 mg/dL (1.0-10)
[2023-01-15] MEDS: KETAMINE HCL 100 MG/ML inj IV (19:03)
[2023-01-15] MEDS: VECURONIUM 1 MG/ML INJ 10 MG IVP (19:14)
[2023-01-15 19:26] LABS: Procalcitonin* 0.49 ng/mL (<0.50)
[2023-01-15] MEDS: MIDAZOLAM HCL 1 MG/ML inj 2 MG IVP (19:44)
--- NOTE | 2023-01-15 20:17 | ED.NURSE ---
Pt arrived to ER initially uncooperative. During time in ER, pt became increasingly confused. 1mg IV Ativan given as ordered. Pt became difficult to arouse, but was breathing on her own. BiPAP was reapplied to the patient. Dr. Diane notified of change in status. Narcan and Flumazenil given - see JUL. Pt awoke and was combative and more confused. Dr. Diane present upon reversal. Pt became combative and was noncompliant with oxygen. Dr. Diane made decision to sedate and intubate patient due to inability to maintain oxygen sats.
--- NOTE | 2023-01-15 20:32 | ED.NURSE ---
[facility] to transport patient via helicopter to [facility], [address], Room 15. Nurse to nurse report given to [place] nurse. All questions answered.
--- NOTE | 2023-01-15 21:40 | ED.NURSE ---
Two bottles of 200mg IV propofol and one bottle of 1000mg IV propofol sent with [facility] per flight crew request. Remaining ketamine from multi-dose bottle from [facility]SI kit also sent with flight crew, approximately 700 mg ketamine. Pt transferred by [facility] to [facility] @ [id number].
--- NOTE | 2023-01-16 06:02 | ED.NURSE ---
entered chart to update mars on pt covid swab lab results.
== END 2023-01-15 21:15 | disposition short-term general hospital (02) ==
PROVIDERS: Family Medicine; Emergency Provider Emergency Medicine; PCP Family Medicine
DX: J96.90 Respiratory failure, unspecified, unspecified whether with hypoxia or hypercapnia (principal); J18.9 Pneumonia, unspecified organism; T50.904A Poisoning by unspecified drugs, medicaments and biological substances, undetermined, initial encounter
CPT/HCPCS: 36415; 71045; 80048; 80076; 80143; 80179; 80306; 81001; 82077; 82803; 83605; 83880; 84145; 84443; 84484; 85025; 85379; 86140; 87040; 87086; 87631; 93005; 94660; 94761; 96365; 96366; 96375; 99285; 99291; 99292; J0330; J1940; J2060; J2250; J2310; J2405; J2543; J3490; J7030; J7120

== ENCOUNTER 2023-01-28 15:45 | Outpatient (CLI) | payer MEDICAID, SELFPAY | END 2023-01-28 15:46 | disposition home or self-care (01) | LOC: AMB 02-02 09:22 | PROVIDERS: PCP Family Medicine; Visit Provider Family Medicine | DX: R53.1 Weakness (principal) | CPT/HCPCS: A0998 ==

== ENCOUNTER 2023-02-07 06:19 | Outpatient (CLI) | payer MEDICAID, SELFPAY | END 2023-02-07 06:20 | disposition home or self-care (01) | LOC: AMB 02-11 12:33 | PROVIDERS: PCP Family Medicine; Visit Provider Family Medicine | DX: T14.90XA Injury, unspecified, initial encounter (principal); W18.30XA Fall on same level, unspecified, initial encounter; Z91.81 History of falling; Y92.032 Bedroom in apartment as the place of occurrence of the external cause | CPT/HCPCS: A0425; A0427 ==

== ENCOUNTER 2023-02-07 06:50 | Emergency (ER) | payer MEDICAID, SELFPAY ==
[2023-02-07] VITALS (68 sets, daily range): BP systolic 83–141; BP diastolic 31–98; PULSE 85–118; RESP 18–20; TEMP 35.6–36.4; O2SAT 81–98; BMI 46.5
--- NOTE | 2023-02-07 07:11 | ED_ITS ---
HPI - General Adult General Time Seen by Provider: 07:12 <Aroldo Tobin MD - Last Filed: 02/20/23 01:23> Date Seen: 02/07/23 <Aroldo Tobin MD - Last Filed: 02/20/23 01:23> Chief complaint: Fall/Minor Trauma <Aroldo Tobin MD - Last Filed: 02/20/23 01:23> Stated complaint: fell <Aroldo Tobin MD - Last Filed: 02/20/23 01:23> Time Seen by Provider: 02/07/23 07:11 <rAoldo Tobin MD - Last Filed: 02/20/23 01:23> Source: patient, EMS, RN notes reviewed and old records reviewed <Aroldo Tobin MD - Last Filed: 02/20/23 01:23> Mode of arrival: EMS <Aroldo Tobin MD - Last Filed: 02/20/23 01:23> Limitations: no limitations <Aroldo Tobin MD - Last Filed: 02/20/23 01:23> History of Present Illness HPI narrative: 42-year-old female with history significant for polysubstance abuse, also recent hospitalization for pneumonia during which time she was intubated due to intolerance BiPAP and continued hypoxia, presents today from assisted living with multiple falls. Patient says she has a history of falling beds had 6 falls in last 24 hours. She says she jerks and falls. She denies any head injury or pain. Shoots back. Proved no numbness or tingling the arms or legs. Denies shortness of breath, does have bit of a cough, denies abdominal pain, nausea, vomiting, diarrhea, or urinary symptoms. <Aroldo Tobin MD - Last Filed: 02/20/23 01:23> Related Data Home medications: Home Medications Medication Instructions Recorded Confirmed acetaminophen 500 mg tablet 500 mg PO Q6H PRN 02/07/23 02/07/23 baclofen 10 mg tablet 10 mg PO 3XD 02/07/23 02/07/23 benztropine 0.5 mg tablet 0.5 mg PO BID 02/07/23 02/07/23 budesonide-formoterol HFA 160 2 puff inhalation BID 02/07/23 02/07/23 mcg-4.5 mcg/actuation aerosol inhaler (Symbicort) clonidine HCl 0.2 mg tablet 0.2 mg PO BID 02/07/23 02/07/23 desvenlafaxine succinate 100 mg 100 mg PO DAILY 02/07/23 02/07/23 tablet,extended release 24 hr ferrous gluconate 324 mg (38 mg 324 mg PO DAILY 02/07/23 02/07/23 iron) tablet furosemide 20 mg tablet 20 mg PO DAILY 02/07/23 02/07/23 hydroxyzine pamoate 50 mg capsule 100 mg PO BID 02/07/23 02/07/23 ibuprofen 200 mg tablet 400 mg PO QID 02/07/23 02/07/23 ipratropium 0.5 mg-albuterol 3 mg ml inhalation 02/07/23 (2.5 mg base)/3 mL nebulization soln lidocaine 5 % topical patch 1 patch topical DAILY 02/07/23 02/07/23 lurasidone 20 mg tablet (Latuda) 20 mg PO DAILY 02/07/23 02/07/23 lurasidone 40 mg tablet (Latuda) 40 mg PO QPM 02/07/23 02/07/23 melatonin 5 mg capsule 5 mg PO QPM 02/07/23 02/07/23 meloxicam 7.5 mg tablet 7.5 mg PO BID 02/07/23 02/07/23 metformin 500 mg tablet,extended 500 mg PO BID 02/07/23 02/07/23 release 24 hr metoprolol tartrate 50 mg tablet 50 mg PO BID 02/07/23 02/07/23 pantoprazole 40 mg tablet,delayed 40 mg PO DAILY 02/07/23 02/07/23 release polyethylene glycol 3350 17 17 g PO DAILY 02/07/23 02/07/23 gram/dose oral powder pregabalin 75 mg capsule 75 mg PO 3XD 02/07/23 02/07/23 triamcinolone acetonide 0.025 % applic topical 02/07/23 topical cream vilazodone 20 mg tablet PO 02/07/23 <Aroldo Tobin MD - Last Filed: 02/20/23 01:23> Allergies/adverse reactions: Allergies Allergy/AdvReac Type Severity Reaction Status Date / Time No Known Drug Allergies Allergy Verified 02/07/23 07:05 <Aroldo Tobin MD - Last Filed: 02/20/23 01:23> [facility] Social History: Social History Smoking Status: Current every day smoker What tobacco products do you use: cigarettes Do you use any of these nicotine containing products: None Second hand tobacco smoke exposure: No How often do you have a drink containing alcohol: never AUDIT-C Alcohol total score: 0 Non-prescribed substance use: denies use Non-prescribed substance use details: Unable to give accurate history regarding current use service: No <Aroldo Tobin MD - Last Filed: 02/20/23 01:23> Exam Narrative: Exam Narrative: General: Well-developed and well-nourished, no acute distress Head: Atraumatic and normocephalic Eyes: Pupils are equal reactive, extraocular motions intact, conjunctiva clear ENT: External nose and ears are normal, posterior pharynx without erythema or exudate Neck: No midline cervical tenderness, full spontaneous range of motion the neck, trachea midline, no adenopathy Heart: Tachycardic but regular Lungs: Diffuse crackles with expiratory wheezes Abdomen: Soft, nontender, nondistended with active bowel sounds Musculoskeletal: No tenderness, deformity, or edema Neurologic: Awake, alert, and oriented x3, no gross focal neurologic deficits, cranial nerves intact as tested. No rigidity, no hyper reflexia, no ocular clonus or inducible myoclonus. Psych: Mood and affect are appropriate Skin: No rashes <Aroldo Tobin MD - Last Filed: 02/20/23 01:23> Const: Vital Signs, click to edit/add: Vital Signs - 24 hr 02/07/23 06:54 02/07/23 07:44 02/07/23 07:45 Temperature 97.6 F Pulse Rate 100 100 Pulse Rate [Left P ulse Oximeter] 104 H Respiratory Rate 18 Blood Pressure Blood Pressure [Ri ght Upper Arm] 126/78 Pulse Oximetry 92 92 94 Oxygen Delivery Me thod Nasal Cannula Fraction of Inspir ed Oxygen 02/07/23 08:08 02/07/23 08:09 02/07/23 08:15 Temperature Pulse Rate 95 97 Pulse Rate [Left P ulse Oximeter] Respiratory Rate Blood Pressure 141/57 H Blood Pressure [Ri ght Upper Arm] Pulse Oximetry 97 95 Oxygen Delivery Me thod Fraction of Inspir ed Oxygen 02/07/23 08:25 02/07/23 08:25 02/07/23 08:31 Temperature Pulse Rate 97 96 Pulse Rate [Left P ulse Oximeter] 91 Respiratory Rate 20 Blood Pressure 121/71 103/78 Blood Pressure [Ri ght Upper Arm] 121/71 Pulse Oximetry 96 94 96 Oxygen Delivery Me thod Nasal Cannula Fraction of Inspir ed Oxygen 02/07/23 08:32 02/07/23 08:33 02/07/23 08:34 Temperature Pulse Rate 92 95 93 Pulse Rate [Left P ulse Oximeter] Respiratory Rate Blood Pressure 116/71 Blood Pressure [Ri ght Upper Arm] Pulse Oximetry 94 93 94 Oxygen Delivery Me thod Fraction of Inspir ed Oxygen 02/07/23 08:45 02/07/23 08:46 02/07/23 08:47 Temperature Pulse Rate 92 85 87 Pulse Rate [Left P ulse Oximeter] Respiratory Rate Blood Pressure 109/75 Blood Pressure [Ri ght Upper Arm] Pulse Oximetry 92 93 91 Oxygen Delivery Me thod Fraction of Inspir ed Oxygen 02/07/23 08:56 02/07/23 09:00 02/07/23 09:13 Temperature Pulse Rate 101 H 90 Pulse Rate [Left P ulse Oximeter] Respiratory Rate Blood Pressure 118/51 L Blood Pressure [Ri ght Upper Arm] Pulse Oximetry 82 L 91 Oxygen Delivery Me thod Fraction of Inspir ed Oxygen 0.21 02/07/23 09:14 02/07/23 09:15 02/07/23 09:17 Temperature Pulse Rate 87 91 91 Pulse Rate [Left P ulse Oximeter] Respiratory Rate Blood Pressure 93/31 L Blood Pressure [Ri ght Upper Arm] Pulse Oximetry 93 95 96 Oxygen Delivery Me thod Fraction of Inspir ed Oxygen 02/07/23 09:25 02/07/23 09:30 02/07/23 09:30 Temperature 96.1 F L Pulse Rate 87 90 Pulse Rate [Left P ulse Oximeter] Respiratory Rate Blood Pressure 106/76 Blood Pressure [Ri ght Upper Arm] Pulse Oximetry 93 93 Oxygen Delivery Me thod Fraction of Inspir ed Oxygen 02/07/23 09:31 02/07/23 09:45 02/07/23 09:46 Temperature Pulse Rate 90 91 89 Pulse Rate [Left P ulse Oximeter] Respiratory Rate Blood Pressure 95/67 101/71 Blood Pressure [Ri ght Upper Arm] Pulse Oximetry 95 94 93 Oxygen Delivery Me thod Fraction of Inspir ed Oxygen 02/07/23 10:00 02/07/23 10:01 02/07/23 10:15 Temperature Pulse Rate 88 91 92 Pulse Rate [Left P ulse Oximeter] Respiratory Rate Blood Pressure 116/65 Blood Pressure [Ri ght Upper Arm] Pulse Oximetry 89 89 86 L Oxygen Delivery Me thod Fraction of Inspir ed Oxygen 02/07/23 10:17 02/07/23 10:18 02/07/23 10:41 Temperature Pulse Rate 97 97 118 H Pulse Rate [Left P ulse Oximeter] Respiratory Rate Blood Pressure 114/93 H Blood Pressure [Ri ght Upper Arm] Pulse Oximetry 88 88 87 L Oxygen Delivery Me thod Fraction of Inspir ed Oxygen 02/07/23 10:45 02/07/23 10:47 02/07/23 11:00 Temperature Pulse Rate 105 H 108 H 112 H Pulse Rate [Left P ulse Oximeter] Respiratory Rate Blood Pressure 115/98 H Blood Pressure [Ri ght Upper Arm] Pulse Oximetry 89 88 82 L Oxygen Delivery Me thod Fraction of Inspir ed Oxygen 02/07/23 11:02 02/07/23 11:12 02/07/23 11:15 Temperature Pulse Rate 103 H 105 H 101 H Pulse Rate [Left P ulse Oximeter] Respiratory Rate Blood Pressure 83/58 L 110/87 Blood Pressure [Ri ght Upper Arm] Pulse Oximetry 92 88 81 L Oxygen Delivery Me thod Fraction of Inspir ed Oxygen 02/07/23 11:18 02/07/23 11:19 02/07/23 11:30 Temperature Pulse Rate 94 95 99 Pulse Rate [Left P ulse Oximeter] Respiratory Rate Blood Pressure 90/52 L Blood Pressure [Ri ght Upper Arm] Pulse Oximetry 98 96 96 Oxygen Delivery Me thod Fraction of Inspir ed Oxygen 02/07/23 11:36 02/07/23 11:45 02/07/23 11:46 Temperature Pulse Rate 104 H 100 97 Pulse Rate [Left P ulse Oximeter] Respiratory Rate Blood Pressure 125/68 109/65 Blood Pressure [Ri ght Upper Arm] Pulse Oximetry 89 85 L 87 L Oxygen Delivery Me thod Fraction of Inspir ed Oxygen 02/07/23 12:00 02/07/23 12:02 02/07/23 12:15 Temperature Pulse Rate 97 97 93 Pulse Rate [Left P ulse Oximeter] Respiratory Rate Blood Pressure 102/72 Blood Pressure [Ri ght Upper Arm] Pulse Oximetry 82 L 88 87 L Oxygen Delivery Me thod Fraction of Inspir ed Oxygen 02/07/23 12:16 02/07/23 12:30 02/07/23 12:31 Temperature Pulse Rate 95 97 96 Pulse Rate [Left P ulse Oximeter] Respiratory Rate Blood Pressure 114/67 109/67 Blood Pressure [Ri ght Upper Arm] Pulse Oximetry 87 L 85 L 86 L Oxygen Delivery Me thod Fraction of Inspir ed Oxygen 02/07/23 12:32 02/07/23 12:45 02/07/23 12:47 Temperature Pulse Rate 98 102 H 92 Pulse Rate [Left P ulse Oximeter] Respiratory Rate Blood Pressure 112/67 Blood Pressure [Ri ght Upper Arm] Pulse Oximetry 84 L 85 L 83 L Oxygen Delivery Me thod Fraction of Inspir ed Oxygen 02/07/23 13:00 02/07/23 13:02 02/07/23 13:15 Temperature Pulse Rate 104 H 105 H 104 H Pulse Rate [Left P ulse Oximeter] Respiratory Rate Blood Pressure 134/70 Blood Pressure [Ri ght Upper Arm] Pulse Oximetry 83 L 83 L 86 L Oxygen Delivery Me thod Fraction of Inspir ed Oxygen 02/07/23 13:20 02/07/23 13:30 02/07/23 13:33 Temperature Pulse Rate 107 H 103 H 103 H Pulse Rate [Left P ulse Oximeter] Respiratory Rate Blood Pressure 104/86 99/67 Blood Pressure [Ri ght Upper Arm] Pulse Oximetry 87 L 87 L 88 Oxygen Delivery Me thod Fraction of Inspir ed Oxygen 02/07/23 13:45 02/07/23 13:46 02/07/23 14:00 Temperature Pulse Rate 111 H 105 H 108 H Pulse Rate [Left P ulse Oximeter] Respiratory Rate Blood Pressure 111/87 Blood Pressure [Ri ght Upper Arm] Pulse Oximetry 86 L 83 L 85 L Oxygen Delivery Me thod Fraction of Inspir ed Oxygen 02/07/23 14:02 02/07/23 14:03 02/07/23 14:15 Temperature Pulse Rate 113 H 112 H 111 H Pulse Rate [Left P ulse Oximeter] Respiratory Rate Blood Pressure 121/83 Blood Pressure [Ri ght Upper Arm] Pulse Oximetry 85 L 86 L 88 Oxygen Delivery Me thod Fraction of Inspir ed Oxygen 02/07/23 14:17 02/07/23 14:30 02/07/23 14:34 Temperature Pulse Rate 113 H 112 H 112 H Pulse Rate [Left P ulse Oximeter] Respiratory Rate Blood Pressure 133/62 Blood Pressure [Ri ght Upper Arm] Pulse Oximetry 87 L 89 89 Oxygen Delivery Me thod Fraction of Inspir ed Oxygen 02/07/23 14:45 02/07/23 14:49 Temperature Pulse Rate 108 H 117 H Pulse Rate [Left P ulse Oximeter] Respiratory Rate Blood Pressure Blood Pressure [Ri ght Upper Arm] Pulse Oximetry 87 L 84 L Oxygen Delivery Me thod Fraction of Inspir ed Oxygen <Aroldo Tobin MD - Last Filed: 02/20/23 01:23> Vital Signs, click to edit/add: Vital Signs - 24 hr 02/07/23 06:54 02/07/23 07:44 02/07/23 07:45 Temperature 97.6 F Pulse Rate 100 100 Pulse Rate [Left P ulse Oximeter] 104 H Respiratory Rate 18 Blood Pressure Blood Pressure [Ri ght Upper Arm] 126/78 Pulse Oximetry 92 92 94 Oxygen Delivery Me thod Nasal Cannula Fraction of Inspir ed Oxygen 02/07/23 08:08 02/07/23 08:09 02/07/23 08:15 Temperature Pulse Rate 95 97 Pulse Rate [Left P ulse Oximeter] Respiratory Rate Blood Pressure 141/57 H Blood Pressure [Ri ght Upper Arm] Pulse Oximetry 97 95 Oxygen Delivery Me thod Fraction of Inspir ed Oxygen 02/07/23 08:25 02/07/23 08:25 02/07/23 08:31 Temperature Pulse Rate 97 96 Pulse Rate [Left P ulse Oximeter] 91 Respiratory Rate 20 Blood Pressure 121/71 103/78 Blood Pressure [Ri ght Upper Arm] 121/71 Pulse Oximetry 96 94 96 Oxygen Delivery Me thod Nasal Cannula Fraction of Inspir ed Oxygen 02/07/23 08:32 02/07/23 08:33 02/07/23 08:34 Temperature Pulse Rate 92 95 93 Pulse Rate [Left P ulse Oximeter] Respiratory Rate Blood Pressure 116/71 Blood Pressure [Ri ght Upper Arm] Pulse Oximetry 94 93 94 Oxygen Delivery Me thod Fraction of Inspir ed Oxygen 02/07/23 08:45 02/07/23 08:46 02/07/23 08:47 Temperature Pulse Rate 92 85 87 Pulse Rate [Left P ulse Oximeter] Respiratory Rate Blood Pressure 109/75 Blood Pressure [Ri ght Upper Arm] Pulse Oximetry 92 93 91 Oxygen Delivery Me thod Fraction of Inspir ed Oxygen 02/07/23 08:56 02/07/23 09:00 02/07/23 09:13 Temperature Pulse Rate 101 H 90 Pulse Rate [Left P ulse Oximeter] Respiratory Rate Blood Pressure 118/51 L Blood Pressure [Ri ght Upper Arm] Pulse Oximetry 82 L 91 Oxygen Delivery Me thod Fraction of Inspir ed Oxygen 0.21 02/07/23 09:14 02/07/23 09:15 02/07/23 09:17 Temperature Pulse Rate 87 91 91 Pulse Rate [Left P ulse Oximeter] Respiratory Rate Blood Pressure 93/31 L Blood Pressure [Ri ght Upper Arm] Pulse Oximetry 93 95 96 Oxygen Delivery Me thod Fraction of Inspir ed Oxygen 02/07/23 09:25 02/07/23 09:30 02/07/23 09:30 Temperature 96.1 F L Pulse Rate 87 90 Pulse Rate [Left P ulse Oximeter] Respiratory Rate Blood Pressure 106/76 Blood Pressure [Ri ght Upper Arm] Pulse Oximetry 93 93 Oxygen Delivery Me thod Fraction of Inspir ed Oxygen 02/07/23 09:31 02/07/23 09:45 02/07/23 09:46 Temperature Pulse Rate 90 91 89 Pulse Rate [Left P ulse Oximeter] Respiratory Rate Blood Pressure 95/67 101/71 Blood Pressure [Ri ght Upper Arm] Pulse Oximetry 95 94 93 Oxygen Delivery Me thod Fraction of Inspir ed Oxygen 02/07/23 10:00 02/07/23 10:01 02/07/23 10:15 Temperature Pulse Rate 88 91 92 Pulse Rate [Left P ulse Oximeter] Respiratory Rate Blood Pressure 116/65 Blood Pressure [Ri ght Upper Arm] Pulse Oximetry 89 89 86 L Oxygen Delivery Me thod Fraction of Inspir ed Oxygen 02/07/23 10:17 02/07/23 10:18 02/07/23 10:41 Temperature Pulse Rate 97 97 118 H Pulse Rate [Left P ulse Oximeter] Respiratory Rate Blood Pressure 114/93 H Blood Pressure [Ri ght Upper Arm] Pulse Oximetry 88 88 87 L Oxygen Delivery Me thod Fraction of Inspir ed Oxygen 02/07/23 10:45 02/07/23 10:47 02/07/23 11:00 Temperature Pulse Rate 105 H 108 H 112 H Pulse Rate [Left P ulse Oximeter] Respiratory Rate Blood Pressure 115/98 H Blood Pressure [Ri ght Upper Arm] Pulse Oximetry 89 88 82 L Oxygen Delivery Me thod Fraction of Inspir ed Oxygen 02/07/23 11:02 02/07/23 11:12 02/07/23 11:15 Temperature Pulse Rate 103 H 105 H 101 H Pulse Rate [Left P ulse Oximeter] Respiratory Rate Blood Pressure 83/58 L 110/87 Blood Pressure [Ri ght Upper Arm] Pulse Oximetry 92 88 81 L Oxygen Delivery Me thod Fraction of Inspir ed Oxygen 02/07/23 11:18 02/07/23 11:19 02/07/23 11:30 Temperature Pulse Rate 94 95 99 Pulse Rate [Left P ulse Oximeter] Respiratory Rate Blood Pressure 90/52 L Blood Pressure [Ri ght Upper Arm] Pulse Oximetry 98 96 96 Oxygen Delivery Me thod Fraction of Inspir ed Oxygen 02/07/23 11:36 02/07/23 11:45 02/07/23 11:46 Temperature Pulse Rate 104 H 100 97 Pulse Rate [Left P ulse Oximeter] Respiratory Rate Blood Pressure 125/68 109/65 Blood Pressure [Ri ght Upper Arm] Pulse Oximetry 89 85 L 87 L Oxygen Delivery Me thod Fraction of Inspir ed Oxygen 02/07/23 12:00 02/07/23 12:02 02/07/23 12:15 Temperature Pulse Rate 97 97 93 Pulse Rate [Left P ulse Oximeter] Respiratory Rate Blood Pressure 102/72 Blood Pressure [Ri ght Upper Arm] Pulse Oximetry 82 L 88 87 L Oxygen Delivery Me thod Fraction of Inspir ed Oxygen 02/07/23 12:16 02/07/23 12:30 02/07/23 12:31 Temperature Pulse Rate 95 97 96 Pulse Rate [Left P ulse Oximeter] Respiratory Rate Blood Pressure 114/67 109/67 Blood Pressure [Ri ght Upper Arm] Pulse Oximetry 87 L 85 L 86 L Oxygen Delivery Me thod Fraction of Inspir ed Oxygen 02/07/23 12:32 02/07/23 12:45 02/07/23 12:47 Temperature Pulse Rate 98 102 H 92 Pulse Rate [Left P ulse Oximeter] Respiratory Rate Blood Pressure 112/67 Blood Pressure [Ri ght Upper Arm] Pulse Oximetry 84 L 85 L 83 L Oxygen Delivery Me thod Fraction of Inspir ed Oxygen 02/07/23 13:00 02/07/23 13:02 02/07/23 13:15 Temperature Pulse Rate 104 H 105 H 104 H Pulse Rate [Left P ulse Oximeter] Respiratory Rate Blood Pressure 134/70 Blood Pressure [Ri ght Upper Arm] Pulse Oximetry 83 L 83 L 86 L Oxygen Delivery Me thod Fraction of Inspir ed Oxygen 02/07/23 13:20 02/07/23 13:30 02/07/23 13:33 Temperature Pulse Rate 107 H 103 H 103 H Pulse Rate [Left P ulse Oximeter] Respiratory Rate Blood Pressure 104/86 99/67 Blood Pressure [Ri ght Upper Arm] Pulse Oximetry 87 L 87 L 88 Oxygen Delivery Me thod Fraction of Inspir ed Oxygen 02/07/23 13:45 02/07/23 13:46 02/07/23 14:00 Temperature Pulse Rate 111 H 105 H 108 H Pulse Rate [Left P ulse Oximeter] Respiratory Rate Blood Pressure 111/87 Blood Pressure [Ri ght Upper Arm] Pulse Oximetry 86 L 83 L 85 L Oxygen Delivery Me thod Fraction of Inspir ed Oxygen 02/07/23 14:02 02/07/23 14:03 02/07/23 14:15 Temperature Pulse Rate 113 H 112 H 111 H Pulse Rate [Left P ulse Oximeter] Respiratory Rate Blood Pressure 121/83 Blood Pressure [Ri ght Upper Arm] Pulse Oximetry 85 L 86 L 88 Oxygen Delivery Me thod Fraction of Inspir ed Oxygen 02/07/23 14:17 02/07/23 14:30 02/07/23 14:34 Temperature Pulse Rate 113 H 112 H 112 H Pulse Rate [Left P ulse Oximeter] Respiratory Rate Blood Pressure 133/62 Blood Pressure [Ri ght Upper Arm] Pulse Oximetry 87 L 89 89 Oxygen Delivery Me thod Fraction of Inspir ed Oxygen 02/07/23 14:45 02/07/23 14:49 Temperature Pulse Rate 108 H 117 H Pulse Rate [Left P ulse Oximeter] Respiratory Rate Blood Pressure Blood Pressure [Ri ght Upper Arm] Pulse Oximetry 87 L 84 L Oxygen Delivery Me thod Fraction of Inspir ed Oxygen <Tom Tomlin DO - Last Filed: 02/07/23 18:13> Course Course ED Course: Patient seen examined, prior records reviewed. Patient has history of polysubstance abuse recent intubation admission for hypoxic respiratory failure who presents today with multiple falls. She has a history of falls but has had more in the last 24 hours. No focal signs of injury. On exam she is tachycardic and with audible wheezes and coarse breath sounds, CT scan of the chest is ordered. Given falls CT scan of the head is ordered. Labs ordered and will evaluate for other causes of weakness. Plan to sign out to oncoming provider. <Aroldo Tobin MD - Last Filed: 02/20/23 01:23> Reevaluation(s) Time of Reevaluation #1: 07:58 <Aroldo Tobin MD - Last Filed: 02/20/23 01:23> Reevaluation #1: Venous blood gas and panel interpreted by me with pH 7.26 and pCO2 of 66. This may be contribute patient's falls and myoclonic jerks. BiPAP initiated although at last admission had difficulty tolerating this. Signout to oncoming provider, consider admission pending results for emergency department evaluation and clinical course. <Aroldo Tobin MD - Last Filed: 02/20/23 01:23> Vital Signs Vital signs: Initial Vital Signs Temperature 97.6 F 02/07/23 06:54 Temperature Source Temporal Artery Scan 02/07/23 06:54 Pulse Rate 104 H 02/07/23 06:54 Respiratory Rate 18 02/07/23 06:54 Blood Pressure 126/78 02/07/23 06:54 Blood Pressure Mean 94 02/07/23 06:54 Blood Pressure Position Semi-Fowlers 02/07/23 06:54 Pulse Oximetry 92 02/07/23 06:54 Oxygen Delivery Method Nasal Cannula 02/07/23 06:54 Vital Signs Temperature 97.6 F 02/07/23 06:54 Pulse Rate 104 H 02/07/23 06:54 Respiratory Rate 18 02/07/23 06:54 Blood Pressure 126/78 02/07/23 06:54 Pulse Oximetry 92 02/07/23 06:54 Oxygen Delivery Method Nasal Cannula 02/07/23 06:54 Temperature 96.1 F L 02/07/23 09:30 Pulse Rate 117 H 02/07/23 14:49 Respiratory Rate 20 02/07/23 08:25 Blood Pressure 133/62 02/07/23 14:17 Pulse Oximetry 84 L 02/07/23 14:49 Oxygen Delivery Method Nasal Cannula 02/07/23 08:25 Fraction of Inspired Oxygen 0.21 02/07/23 08:56 <Aroldo Tobin MD - Last Filed: 02/20/23 01:23> Initial Vital Signs Temperature 97.6 F 02/07/23 06:54 Temperature Source Temporal Artery Scan 02/07/23 06:54 Pulse Rate 104 H 02/07/23 06:54 Respiratory Rate 18 02/07/23 06:54 Blood Pressure 126/78 02/07/23 06:54 Blood Pressure Mean 94 02/07/23 06:54 Blood Pressure Position Semi-Fowlers 02/07/23 06:54 Pulse Oximetry 92 02/07/23 06:54 Oxygen Delivery Method Nasal Cannula 02/07/23 06:54 Vital Signs Temperature 97.6 F 02/07/23 06:54 Pulse Rate 104 H 02/07/23 06:54 Respiratory Rate 18 02/07/23 06:54 Blood Pressure 126/78 02/07/23 06:54 Pulse Oximetry 92 02/07/23 06:54 Oxygen Delivery Method Nasal Cannula 02/07/23 06:54 Temperature 96.1 F L 02/07/23 09:30 Pulse Rate 117 H 02/07/23 14:49 Respiratory Rate 20 02/07/23 08:25 Blood Pressure 133/62 02/07/23 14:17 Pulse Oximetry 84 L 02/07/23 14:49 Oxygen Delivery Method Nasal Cannula 02/07/23 08:25 Fraction of Inspired Oxygen 0.21 02/07/23 08:56 <Tom Tomlin DO - Last Filed: 02/07/23 18:13> Medical Decision Making MDM Narrative Medical decision making narrative: Patient is a 42-year-old female signed out to me by Dr. Tobin at the end of his shift. Patient appears to be in hypercapnic respiratory failure. She is acidotic with the pCO2 on VBG of 66. 30-40 minutes after this she went on BiPAP for a recheck active VBG showed a worsening acidosis and pCO2. Shortly after this though her end-tidal was went from 400-500 to 700-900 with a minute ventilation going from 6 to 10. Despite the worsening pCO2 acidosis she is now looking better on the vent so will hold off on intubating and do a repeat VBG an hour. I did speak to Dr. Watson of [facility] and she accepted the patient for transfer but there is a 2-4 hour wait. With a repeat VBG is she is now showing improvement. We continue to monitor her and again the repeat VBG is showed more improvement and patient did appear more awake and even got up to use the bedside commode. There was consideration of keeping her in our hospital but then patient began to decompensate again with worsening tidal volumes and minute ventilation. She still has improved from when she 1st arrived. With how she is jumping around from improvement to worsening I would still believe it is best for her to be transferred to a larger facility. At night hospitalist she would require intubation the only providers available are the ED providers and they are in a different part of the hospital. She did ask for a DuoNeb and this was given. <Tom Tomlin, DO - Last Filed: 02/07/23 18:13> Lab Data Labs: Lab Results 02/07/23 02/07/23 02/07/23 Range/Units 07:35 07:40 09:00 WBC 6.54 (4.50-11.00) K/uL RBC 4.11 (4.00-5.20) m/uL Hgb 10.9 L (12.0-16.0) gm/dL Hct 36.5 (33.0-51.0) % MCV 89 (80-100) fL MCH 27 (26-34) pg MCHC 30 L (32-36) gm/dL RDW Coeff of Maeve 18.5 H (11.5-15.5) % Plt Count 260 (140-440) K/uL Neut % (Auto) 71.2 (42.0-72.0) % Lymph % (Auto) 19.7 L (20-44) % Bulloch % (Auto) 5.4 (0.0-11.0) % Eos % (Auto) 3.2 (0.0-7.0) % Baso % (Auto) 0.3 (0.0-3.0) % Neut # (Auto) 4.66 (1.7-7.0) K/uL Lymph # (Auto) 1.30 (0.90-2.90) K/uL Bulloch # (Auto) 0.40 (0.00-0.90) K/UL Eos # (Auto) 0.21 (0.00-0.50) K/uL Baso # (Auto) 0.02 (0.00-0.30) K/uL Abs Immat Gran (auto) 0.01 (0.00-0.30) K/uL Imm/Tot Granulo (auto) 0.2 % Diff Slide Review Acceptable Review (Acceptable) INR 0.82 L (0.91-1.10) VBG pH 7.261 L 7.238 L* (7.32-7.43) VBG pCO2 66 H* 72 H* (40-50) mmHG VBG pO2 38.3 35.0 (25-47) mmHG VBG HCO3 29 H 31 H (21-28) mmol/L Sodium 138 (135-149) mmol/L Potassium 3.7 (3.6-5.1) mmol/L Chloride 103 (96-114) mmol/L Carbon Dioxide 29 (20-32) mmol/L Anion Gap 6 L (7-15) mEq/L BUN 23 (5-24) mg/dL Creatinine 1.0 (0.5-1.5) mg/dL Estimated Creat Clear 62.64 Estimated GFR 72 ml/min Glucose 130 H (60-115) mg/dL Lactate 1.1 (0.5-1.9) mmol/L Calcium 9.1 (8.4-10.6) mg/dL Magnesium 1.2 L (1.5-2.6) mg/dL Total Bilirubin 0.2 (0.1-1.5) mg/dL Direct Bilirubin 0.1 (0.0-0.5) mg/dL AST 20 (12-35) U/L ALT 23 (4-35) U/L Alkaline Phosphatase 100 (40-150) U/L Ammonia < 9.0 L (13.1-30.0) umol/L NT-Pro-B Natriuret Pep 533 pg/mL Total Protein 6.1 (6.0-8.3) g/dL Albumin 3.2 L (3.3-5.0) g/dL Urine Color (Yellow) Urine Appearance (Clear) Urine pH (5.0-8.5) Ur Specific [place] (1.000-1.030) Urine Protein (Negative) Urine Glucose (UA) (Negative) Urine Ketones (Negative) Urine Blood (Negative) Urine Nitrite (Negative) Urine Bilirubin (Negative) Urine Urobilinogen (0.2-1.0) Ur Leukocyte Esterase (Negative) Urine RBC (0-2) Urine WBC (0-5) Ur Squamous Epith Cells (None-Few) Urine Bacteria (None) Urine Opiates Screen (Negative) Ur Oxycodone Screen (Negative) Urine Methadone Screen (Negative) Ur Propoxyphene Screen (Negative) Ur Barbiturates Screen (Negative) U Tricyclic Antidepress (Negative) Ur Phencyclidine Scrn (Negative) Ur Amphetamines Screen (Negative) U Methamphetamines Scrn (Negative) U Benzodiazepines Scrn (Negative) Urine Cocaine Screen (Negative) U Marijuana (THC) Screen (Negative) Ur Drug Screen Comment Ethyl Alcohol < 0.01 L (0.01-0.03) % SARS-CoV-2 (PCR) Negative SARS-CoV-2 (Negative) Influenza Type A (PCR) Negative PCR FLU A (Negative) Influenza Type B (PCR) Negative PCR FLU B (Negative) RSV (PCR) Negative PCR RSV (Negative) POC Troponin I 0.01 (0.01-0.04) ng/ml 02/07/23 02/07/23 02/07/23 Range/Units 09:56 10:40 10:56 WBC (4.50-11.00) K/uL RBC (4.00-5.20) m/uL Hgb (12.0-16.0) gm/dL Hct (33.0-51.0) % MCV (80-100) fL MCH (26-34) pg MCHC (32-36) gm/dL RDW Coeff of Maeve (11.5-15.5) % Plt Count (140-440) K/uL Neut % (Auto) (42.0-72.0) % Lymph % (Auto) (20-44) % [place] % (Auto) (0.0-11.0) % Eos % (Auto) (0.0-7.0) % Baso % (Auto) (0.0-3.0) % Neut # (Auto) (1.7-7.0) K/uL Lymph # (Auto) (0.90-2.90) K/uL [place] # (Auto) (0.00-0.90) K/UL Eos # (Auto) (0.00-0.50) K/uL Baso # (Auto) (0.00-0.30) K/uL Abs Immat Gran (auto) (0.00-0.30) K/uL Imm/Tot Granulo (auto) % Diff Slide Review (Acceptable) INR (0.91-1.10) VBG pH 7.265 L 7.277 L (7.32-7.43) VBG pCO2 69 H* 65 H* (40-50) mmHG VBG pO2 27.0 31.4 (25-47) mmHG VBG HCO3 32 H 30 H (21-28) mmol/L Sodium (135-149) mmol/L Potassium (3.6-5.1) mmol/L Chloride (96-114) mmol/L Carbon Dioxide (20-32) mmol/L Anion Gap (7-15) mEq/L BUN (5-24) mg/dL Creatinine (0.5-1.5) mg/dL Estimated Creat Clear Estimated GFR ml/min Glucose (60-115) mg/dL Lactate (0.5-1.9) mmol/L Calcium (8.4-10.6) mg/dL Magnesium (1.5-2.6) mg/dL Total Bilirubin (0.1-1.5) mg/dL Direct Bilirubin (0.0-0.5) mg/dL AST (12-35) U/L ALT (4-35) U/L Alkaline Phosphatase (40-150) U/L Ammonia (13.1-30.0) umol/L NT-Pro-B Natriuret Pep pg/mL Total Protein (6.0-8.3) g/dL Albumin (3.3-5.0) g/dL Urine Color (Yellow) Urine Appearance (Clear) Urine pH (5.0-8.5) Ur Specific [place] (1.000-1.030) Urine Protein (Negative) Urine Glucose (UA) (Negative) Urine Ketones (Negative) Urine Blood (Negative) Urine Nitrite (Negative) Urine Bilirubin (Negative) Urine Urobilinogen (0.2-1.0) Ur Leukocyte Esterase (Negative) Urine RBC (0-2) Urine WBC (0-5) Ur Squamous Epith Cells (None-Few) Urine Bacteria (None) Urine Opiates Screen Negative (Negative) Ur Oxycodone Screen Negative (Negative) Urine Methadone Screen Negative (Negative) Ur Propoxyphene Screen Negative (Negative) Ur Barbiturates Screen Negative (Negative) U Tricyclic Antidepress Negative (Negative) Ur Phencyclidine Scrn Negative (Negative) Ur Amphetamines Screen Negative (Negative) U Methamphetamines Scrn Negative (Negative) U Benzodiazepines Scrn Negative (Negative) Urine Cocaine Screen Negative (Negative) U Marijuana (THC) Screen Negative (Negative) Ur Drug Screen Comment See Note Ethyl Alcohol (0.01-0.03) % SARS-CoV-2 (PCR) (Negative) Influenza Type A (PCR) (Negative) Influenza Type B (PCR) (Negative) RSV (PCR) (Negative) POC Troponin I (0.01-0.04) ng/ml 02/07/23 02/07/23 Range/Units 13:48 Unknown WBC (4.50-11.00) K/uL RBC (4.00-5.20) m/uL Hgb (12.0-16.0) gm/dL Hct (33.0-51.0) % MCV (80-100) fL MCH (26-34) pg MCHC (32-36) gm/dL RDW Coeff of Maeve (11.5-15.5) % Plt Count (140-440) K/uL Neut % (Auto) (42.0-72.0) % Lymph % (Auto) (20-44) % [place] % (Auto) (0.0-11.0) % Eos % (Auto) (0.0-7.0) % Baso % (Auto) (0.0-3.0) % Neut # (Auto) (1.7-7.0) K/uL Lymph # (Auto) (0.90-2.90) K/uL [place] # (Auto) (0.00-0.90) K/UL Eos # (Auto) (0.00-0.50) K/uL Baso # (Auto) (0.00-0.30) K/uL Abs Immat Gran (auto) (0.00-0.30) K/uL Imm/Tot Granulo (auto) % Diff Slide Review (Acceptable) INR (0.91-1.10) VBG pH 7.350 (7.32-7.43) VBG pCO2 55 H (40-50) mmHG VBG pO2 35.1 (25-47) mmHG VBG HCO3 30 H (21-28) mmol/L Sodium (135-149) mmol/L Potassium (3.6-5.1) mmol/L Chloride (96-114) mmol/L Carbon Dioxide (20-32) mmol/L Anion Gap (7-15) mEq/L BUN (5-24) mg/dL Creatinine (0.5-1.5) mg/dL Estimated Creat Clear Estimated GFR ml/min Glucose (60-115) mg/dL Lactate (0.5-1.9) mmol/L Calcium (8.4-10.6) mg/dL Magnesium (1.5-2.6) mg/dL Total Bilirubin (0.1-1.5) mg/dL Direct Bilirubin (0.0-0.5) mg/dL AST (12-35) U/L ALT (4-35) U/L Alkaline Phosphatase (40-150) U/L Ammonia (13.1-30.0) umol/L NT-Pro-B Natriuret Pep pg/mL Total Protein (6.0-8.3) g/dL Albumin (3.3-5.0) g/dL Urine Color Yellow (Yellow) Urine Appearance Clear (Clear) Urine pH 5.5 (5.0-8.5) Ur Specific [place] 1.010 (1.000-1.030) Urine Protein Negative (Negative) Urine Glucose (UA) Negative (Negative) Urine Ketones Negative (Negative) Urine Blood Negative (Negative) Urine Nitrite Negative (Negative) Urine Bilirubin Negative (Negative) Urine Urobilinogen 0.2 (0.2-1.0) Ur Leukocyte Esterase Negative (Negative) Urine RBC 0-2 (0-2) Urine WBC 0-2 (0-5) Ur Squamous Epith Cells Moderate A (None-Few) Urine Bacteria Few A (None) Urine Opiates Screen (Negative) Ur Oxycodone Screen (Negative) Urine Methadone Screen (Negative) Ur Propoxyphene Screen (Negative) Ur Barbiturates Screen (Negative) U Tricyclic Antidepress (Negative) Ur Phencyclidine Scrn (Negative) Ur Amphetamines Screen (Negative) U Methamphetamines Scrn (Negative) U Benzodiazepines Scrn (Negative) Urine Cocaine Screen (Negative) U Marijuana (THC) Screen (Negative) Ur Drug Screen Comment Ethyl Alcohol (0.01-0.03) % SARS-CoV-2 (PCR) (Negative) Influenza Type A (PCR) (Negative) Influenza Type B (PCR) (Negative) RSV (PCR) (Negative) POC Troponin I (0.01-0.04) ng/ml <Aroldo Tobin MD - Last Filed: 02/20/23 01:23> Lab Results 02/07/23 02/07/23 02/07/23 Range/Units 07:35 07:40 09:00 WBC 6.54 (4.50-11.00) K/uL RBC 4.11 (4.00-5.20) m/uL Hgb 10.9 L (12.0-16.0) gm/dL Hct 36.5 (33.0-51.0) % MCV 89 (80-100) fL MCH 27 (26-34) pg MCHC 30 L (32-36) gm/dL RDW Coeff of Maeve 18.5 H (11.5-15.5) % Plt Count 260 (140-440) K/uL Neut % (Auto) 71.2 (42.0-72.0) % Lymph % (Auto) 19.7 L (20-44) % [place] % (Auto) 5.4 (0.0-11.0) % Eos % (Auto) 3.2 (0.0-7.0) % Baso % (Auto) 0.3 (0.0-3.0) % Neut # (Auto) 4.66 (1.7-7.0) K/uL Lymph # (Auto) 1.30 (0.90-2.90) K/uL [place] # (Auto) 0.40 (0.00-0.90) K/UL Eos # (Auto) 0.21 (0.00-0.50) K/uL Baso # (Auto) 0.02 (0.00-0.30) K/uL Abs Immat Gran (auto) 0.01 (0.00-0.30) K/uL Imm/Tot Granulo (auto) 0.2 % Diff Slide Review Acceptable Review (Acceptable) INR 0.82 L (0.91-1.10) VBG pH 7.261 L 7.238 L* (7.32-7.43) VBG pCO2 66 H* 72 H* (40-50) mmHG VBG pO2 38.3 35.0 (25-47) mmHG VBG HCO3 29 H 31 H (21-28) mmol/L Sodium 138 (135-149) mmol/L Potassium 3.7 (3.6-5.1) mmol/L Chloride 103 (96-114) mmol/L Carbon Dioxide 29 (20-32) mmol/L Anion Gap 6 L (7-15) mEq/L BUN 23 (5-24) mg/dL Creatinine 1.0 (0.5-1.5) mg/dL Estimated Creat Clear 62.64 Estimated GFR 72 ml/min Glucose 130 H (60-115) mg/dL Lactate 1.1 (0.5-1.9) mmol/L Calcium 9.1 (8.4-10.6) mg/dL Magnesium 1.2 L (1.5-2.6) mg/dL Total Bilirubin 0.2 (0.1-1.5) mg/dL Direct Bilirubin 0.1 (0.0-0.5) mg/dL AST 20 (12-35) U/L ALT 23 (4-35) U/L Alkaline Phosphatase 100 (40-150) U/L Ammonia < 9.0 L (13.1-30.0) umol/L NT-Pro-B Natriuret Pep 533 pg/mL Total Protein 6.1 (6.0-8.3) g/dL Albumin 3.2 L (3.3-5.0) g/dL Urine Color (Yellow) Urine Appearance (Clear) Urine pH (5.0-8.5) Ur Specific [place] (1.000-1.030) Urine Protein (Negative) Urine Glucose (UA) (Negative) Urine Ketones (Negative) Urine Blood (Negative) Urine Nitrite (Negative) Urine Bilirubin (Negative) Urine Urobilinogen (0.2-1.0) Ur Leukocyte Esterase (Negative) Urine RBC (0-2) Urine WBC (0-5) Ur Squamous Epith Cells (None-Few) Urine Bacteria (None) Urine Opiates Screen (Negative) Ur Oxycodone Screen (Negative) Urine Methadone Screen (Negative) Ur Propoxyphene Screen (Negative) Ur Barbiturates Screen (Negative) U Tricyclic Antidepress (Negative) Ur Phencyclidine Scrn (Negative) Ur Amphetamines Screen (Negative) U Methamphetamines Scrn (Negative) U Benzodiazepines Scrn (Negative) Urine Cocaine Screen (Negative) U Marijuana (THC) Screen (Negative) Ur Drug Screen Comment Ethyl Alcohol < 0.01 L (0.01-0.03) % SARS-CoV-2 (PCR) Negative SARS-CoV-2 (Negative) Influenza Type A (PCR) Negative PCR FLU A (Negative) Influenza Type B (PCR) Negative PCR FLU B (Negative) RSV (PCR) Negative PCR RSV (Negative) POC Troponin I 0.01 (0.01-0.04) ng/ml 02/07/23 02/07/23 02/07/23 Range/Units 09:56 10:40 10:56 WBC (4.50-11.00) K/uL RBC (4.00-5.20) m/uL Hgb (12.0-16.0) gm/dL Hct (33.0-51.0) % MCV (80-100) fL MCH (26-34) pg MCHC (32-36) gm/dL RDW Coeff of Maeve (11.5-15.5) % Plt Count (140-440) K/uL Neut % (Auto) (42.0-72.0) % Lymph % (Auto) (20-44) % [place] % (Auto) (0.0-11.0) % Eos % (Auto) (0.0-7.0) % Baso % (Auto) (0.0-3.0) % Neut # (Auto) (1.7-7.0) K/uL Lymph # (Auto) (0.90-2.90) K/uL [place] # (Auto) (0.00-0.90) K/UL Eos # (Auto) (0.00-0.50) K/uL Baso # (Auto) (0.00-0.30) K/uL Abs Immat Gran (auto) (0.00-0.30) K/uL Imm/Tot Granulo (auto) % Diff Slide Review (Acceptable) INR (0.91-1.10) VBG pH 7.265 L 7.277 L (7.32-7.43) VBG pCO2 69 H* 65 H* (40-50) mmHG VBG pO2 27.0 31.4 (25-47) mmHG VBG HCO3 32 H 30 H (21-28) mmol/L Sodium (135-149) mmol/L Potassium (3.6-5.1) mmol/L Chloride (96-114) mmol/L Carbon Dioxide (20-32) mmol/L Anion Gap (7-15) mEq/L BUN (5-24) mg/dL Creatinine (0.5-1.5) mg/dL Estimated Creat Clear Estimated GFR ml/min Glucose (60-115) mg/dL Lactate (0.5-1.9) mmol/L Calcium (8.4-10.6) mg/dL Magnesium (1.5-2.6) mg/dL Total Bilirubin (0.1-1.5) mg/dL Direct Bilirubin (0.0-0.5) mg/dL AST (12-35) U/L ALT (4-35) U/L Alkaline Phosphatase (40-150) U/L Ammonia (13.1-30.0) umol/L NT-Pro-B Natriuret Pep pg/mL Total Protein (6.0-8.3) g/dL Albumin (3.3-5.0) g/dL Urine Color (Yellow) Urine Appearance (Clear) Urine pH (5.0-8.5) Ur Specific [place] (1.000-1.030) Urine Protein (Negative) Urine Glucose (UA) (Negative) Urine Ketones (Negative) Urine Blood (Negative) Urine Nitrite (Negative) Urine Bilirubin (Negative) Urine Urobilinogen (0.2-1.0) Ur Leukocyte Esterase (Negative) Urine RBC (0-2) Urine WBC (0-5) Ur Squamous Epith Cells (None-Few) Urine Bacteria (None) Urine Opiates Screen Negative (Negative) Ur Oxycodone Screen Negative (Negative) Urine Methadone Screen Negative (Negative) Ur Propoxyphene Screen Negative (Negative) Ur Barbiturates Screen Negative (Negative) U Tricyclic Antidepress Negative (Negative) Ur Phencyclidine Scrn Negative (Negative) Ur Amphetamines Screen Negative (Negative) U Methamphetamines Scrn Negative (Negative) U Benzodiazepines Scrn Negative (Negative) Urine Cocaine Screen Negative (Negative) U Marijuana (THC) Screen Negative (Negative) Ur Drug Screen Comment See Note Ethyl Alcohol (0.01-0.03) % SARS-CoV-2 (PCR) (Negative) Influenza Type A (PCR) (Negative) Influenza Type B (PCR) (Negative) RSV (PCR) (Negative) POC Troponin I (0.01-0.04) ng/ml 02/07/23 02/07/23 Range/Units 13:48 Unknown WBC (4.50-11.00) K/uL RBC (4.00-5.20) m/uL Hgb (12.0-16.0) gm/dL Hct (33.0-51.0) % MCV (80-100) fL MCH (26-34) pg MCHC (32-36) gm/dL RDW Coeff of Maeve (11.5-15.5) % Plt Count (140-440) K/uL Neut % (Auto) (42.0-72.0) % Lymph % (Auto) (20-44) % [place] % (Auto) (0.0-11.0) % Eos % (Auto) (0.0-7.0) % Baso % (Auto) (0.0-3.0) % Neut # (Auto) (1.7-7.0) K/uL Lymph # (Auto) (0.90-2.90) K/uL [place] # (Auto) (0.00-0.90) K/UL Eos # (Auto) (0.00-0.50) K/uL Baso # (Auto) (0.00-0.30) K/uL Abs Immat Gran (auto) (0.00-0.30) K/uL Imm/Tot Granulo (auto) % Diff Slide Review (Acceptable) INR (0.91-1.10) VBG pH 7.350 (7.32-7.43) VBG pCO2 55 H (40-50) mmHG VBG pO2 35.1 (25-47) mmHG VBG HCO3 30 H (21-28) mmol/L Sodium (135-149) mmol/L Potassium (3.6-5.1) mmol/L Chloride (96-114) mmol/L Carbon Dioxide (20-32) mmol/L Anion Gap (7-15) mEq/L BUN (5-24) mg/dL Creatinine (0.5-1.5) mg/dL Estimated Creat Clear Estimated GFR ml/min Glucose (60-115) mg/dL Lactate (0.5-1.9) mmol/L Calcium (8.4-10.6) mg/dL Magnesium (1.5-2.6) mg/dL Total Bilirubin (0.1-1.5) mg/dL Direct Bilirubin (0.0-0.5) mg/dL AST (12-35) U/L ALT (4-35) U/L Alkaline Phosphatase (40-150) U/L Ammonia (13.1-30.0) umol/L NT-Pro-B Natriuret Pep pg/mL Total Protein (6.0-8.3) g/dL Albumin (3.3-5.0) g/dL Urine Color Yellow (Yellow) Urine Appearance Clear (Clear) Urine pH 5.5 (5.0-8.5) Ur Specific [place] 1.010 (1.000-1.030) Urine Protein Negative (Negative) Urine Glucose (UA) Negative (Negative) Urine Ketones Negative (Negative) Urine Blood Negative (Negative) Urine Nitrite Negative (Negative) Urine Bilirubin Negative (Negative) Urine Urobilinogen 0.2 (0.2-1.0) Ur Leukocyte Esterase Negative (Negative) Urine RBC 0-2 (0-2) Urine WBC 0-2 (0-5) Ur Squamous Epith Cells Moderate A (None-Few) Urine Bacteria Few A (None) Urine Opiates Screen (Negative) Ur Oxycodone Screen (Negative) Urine Methadone Screen (Negative) Ur Propoxyphene Screen (Negative) Ur Barbiturates Screen (Negative) U Tricyclic Antidepress (Negative) Ur Phencyclidine Scrn (Negative) Ur Amphetamines Screen (Negative) U Methamphetamines Scrn (Negative) U Benzodiazepines Scrn (Negative) Urine Cocaine Screen (Negative) U Marijuana (THC) Screen (Negative) Ur Drug Screen Comment Ethyl Alcohol (0.01-0.03) % SARS-CoV-2 (PCR) (Negative) Influenza Type A (PCR) (Negative) Influenza Type B (PCR) (Negative) RSV (PCR) (Negative) POC Troponin I (0.01-0.04) ng/ml <Tom Tomlin DO - Last Filed: 02/07/23 18:13> ECG Data Attestation: I personally reviewed and interpreted this ECG as follows: <Aroldo Tobin MD - Last Filed: 02/20/23 01:23> Prior ECG tracings: not available for review <Aroldo Tobin MD - Last Filed: 02/20/23 01:23> Interpretation: Performed at 7:31 p.m. demonstrates sinus tachycardia rate 103, no acute ST elevations, nonspecific ST changes, normal axis, normal intervals, QTC 416. <Aroldo Tobin MD - Last Filed: 02/20/23 01:23> Critical Care Time Critical Care Time Critical Care Time: Yes (Acute on chronic respiratory failure, BiPAP) Attestation: The patient required my highest level preparedness to intervene emergently and I personally spent this critical care time directly and personally managing the patient. This critical care time included: Obtaining a history; Examining the patient; Pulse oximetry; Ordering and reviewing of studies; Arranging urgent treatment with development of a management plan; Evaluation of patients response to treatment; Frequent reassessment discussions with other providers. This critical care time was performed to assess and manage the high probability of imminent life-threatening deterioration that could result in multiorgan failure. It was exclusive of separate billable procedures and treating other patients and teaching time. <Aroldo Tobin MD - Last Filed: 02/20/23 01:23> Total Critical Care Time in Minutes: 30 <Aroldo Tobin MD - Last Filed: 02/20/23 01:23> 100 <Tom Tomlin DO - Last Filed: 02/07/23 18:13> Discharge Plan Discharge Clinical Impression: Falls frequently, Acute respiratory failure with hypercapnia <Aroldo Tobin MD - Last Filed: 02/20/23 01:23> Patient Disposition: [facility] <Aroldo Tobin MD - Last Filed: 02/20/23 01:23>
--- NOTE | 2023-02-07 07:21 | CRLHL7_ITS ---
For Patients: As a result of the Century Cures Act, medical imaging exams and procedure reports are released immediately into your electronic medical record. You may view this report before your referring provider. If you have questions, please contact your health care provider. HISTORY: Tachycardia. Hypoxia. TECHNIQUE: Intravenous contrast enhanced CT of the chest. 95 mL Isovue-370 intravenous contrast was administered. COMPARISON: Chest radiograph from 01/15/2023. FINDINGS: Assessment for pulmonary emboli is mildly limited by respiratory motion artifact. On axial image #125 of series 5, there is a small filling defect within a right lower lobe subsegmental pulmonary artery of the posterior segment which likely indicates a small pulmonary embolism. There is no large/central pulmonary embolism. On the left, the low-density adjacent to a small pulmonary artery on image #122 of series 5 likely reflects a pulmonary nodule measuring approximately 6 mm in size. Mild dilatation of the central pulmonary arterial vasculature. - There is no thoracic aortic aneurysm or dissection. No significant pericardial fusion. - 6 mm short axis prevascular lymph node image #46. Approximately the 1.2 cm short axis left inferior hilar lymph node image #81. - Mild peribronchial thickening is present bilaterally. There are some areas of platelike atelectasis. No lung consolidation. As above, there is a 6 mm pulmonary nodule within the left lower lobe on image 122 of series 5. No pleural effusion or pneumothorax. - Degenerative changes of the spine. No acute fractures. IMPRESSION: 1. Examination is mildly limited by respiratory motion artifact. 2. Single small subsegmental pulmonary embolism within a right lower lobe posterior segment subsegmental pulmonary artery. No large or central pulmonary embolism. 3. Areas of peribronchial thickening which could relate to bronchitis or reactive airway disease. 4. A few areas of mild atelectasis. No consolidation. 5. 6 mm left lower lobe pulmonary nodule. 6. Single mildly enlarged left inferior hilar lymph node. Findings discussed with Dr. Tobin on 02/07/2023 at 8:30 hours. Dictated by Patric Jensen MD @ 02/07/2023 8:32:35 AM Please note that all CT scans at this facility use dose modulation, iterative reconstruction, and/or weight-based dosing when appropriate to reduce radiation dose to as low as reasonably achievable. Dictated by: Patric Jensen MD @ 02/07/2023 08:33:23 (Electronically Signed)
--- NOTE | 2023-02-07 07:21 | CRLHL7_ITS ---
For Patients: As a result of the Century Cures Act, medical imaging exams and procedure reports are released immediately into your electronic medical record. You may view this report before your referring provider. If you have questions, please contact your health care provider. Indication: Falls. Weakness. Unable to stop shaking. Technique: Performed without IV contrast. Comparison: None available. Findings: No mass lesion or ventricular obstruction. No hemorrhage is identified. No brain edema or ischemia is localized on this exam. No encephalomalacia. Prominent veins in the soft tissues of the occipital scalp, including 1 apparent vessel which extends into the diploic space of the calvarium near the internal and external occipital protuberances. This is of doubtful present clinical significance. The calvarium and skull base are otherwise unremarkable. Normal aeration of the visualized petrous temporal bones and paranasal sinuses on both sides. Impression: Intracranial contents negative. No acute pathology. Please note that all CT scans at this facility use dose modulation, iterative reconstruction, and/or weight-based dosing when appropriate to reduce radiation dose to as low as reasonably achievable. Dictated by Rubin Augustine MD @ 02/07/2023 8:21:01 AM (Electronically Signed)
[2023-02-07 07:50] LABS: Lactate* 1.1 mmol/L (0.5-1.9)
[2023-02-07 07:52] LABS: Basophils Absolute Auto 0.02 K/uL (0.00-0.30); Basophils Percent Auto 0.3 % (0.0-3.0); Eosinophils Absolute Auto 0.21 K/uL (0.00-0.50); Eosinophils Percent Auto 3.2 % (0.0-7.0); Hematocrit 36.5 % (33.0-51.0); Hemoglobin* 10.9 gm/dL (12.0-16.0); Immature Granulocytes Abs Auto 0.01 K/uL (0.00-0.30); Immature Granulocytes Pct Auto 0.2 %; Lymphocytes Percent Auto 19.7 % (20-44); Mean Corpuscular HGB Conc 30 gm/dL (32-36); Mean Corpuscular Hemoglobin 27 pg (26-34); Mean Corpuscular Volume 89 fL (80-100); Monocytes Percent Auto 5.4 % (0.0-11.0); Neutrophils Absolute Auto 4.66 K/uL (1.7-7.0); Neutrophils Percent Auto 71.2 % (42.0-72.0); Platelet Count* 260 K/uL (140-440); RDW Coefficient of Variation % 18.5 % (11.5-15.5); Red Blood Count 4.11 m/uL (4.00-5.20); White Blood Count* 6.54 K/uL (4.50-11.00)
[2023-02-07 07:53] LABS: HCO3 VBG 29 mmol/L (21-28); PO2 VBG 38.3 mmHG (25-47); pH VBG 7.261 (7.32-7.43)
[2023-02-07 07:54] LABS: PCO2 VBG 66 mmHG (40-50)
[2023-02-07 07:55] LABS: Slide Review Reflex Yes
[2023-02-07 08:12] LABS: Albumin* 3.2 g/dL (3.3-5.0); Chloride* 103 mmol/L (96-114)
[2023-02-07 08:13] LABS: Potassium* 3.7 mmol/L (3.6-5.1); Sodium* 138 mmol/L (135-149)
[2023-02-07 08:14] LABS: Slide Review Acceptable Review (Acceptable)
[2023-02-07 08:15] LABS: Ammonia* < 9.0 umol/L (13.1-30.0); Anion Gap 6 mEq/L (7-15); Bilirubin Direct* 0.1 mg/dL (0.0-0.5); Bilirubin Total* 0.2 mg/dL (0.1-1.5); Blood Urea Nitrogen* 23 mg/dL (5-24); Carbon Dioxide* 29 mmol/L (20-32); Est. Creatinine Clearance* 62.64; Estimated Glomerular Filt Rate 72 ml/min; Ethanol* < 0.01 % (0.01-0.03); INR 0.82 (0.91-1.10); Prothrombin Time 11.8 Seconds; Total Protein* 6.1 g/dL (6.0-8.3)
--- NOTE | 2023-02-07 08:15 | ED.NURSE ---
Patient back from radiology/CT scans. Pipe Installer assisted rad staff with transport of patient. In radiology, patient was conversing with staff, stating she was uncomfortable on the CT scanner cot. Upon return to ED, patient in high-fowlers position. SpO2 90-94% on 2L O2 via NC. RR 14, shallow. Patient continues to deny pain. Appears more fatigued, taking longer to respond to assessment questions. Will continue to monitor, MD updated.
[2023-02-07 08:16] LABS: Alanine Aminotransferase* 23 U/L (4-35); Alkaline Phosphatase* 100 U/L (40-150); Aspartate Amino Transferase* 20 U/L (12-35); Calcium* 9.1 mg/dL (8.4-10.6); Glucose* 130 mg/dL (60-115); Magnesium* 1.2 mg/dL (1.5-2.6)
[2023-02-07 08:17] LABS: Troponin, Point-of-Care* 0.01 ng/ml (0.01-0.04)
[2023-02-07 08:25] LABS: NT Pro B Type NatriureticPept* 533 pg/mL
--- NOTE | 2023-02-07 08:30 | ED.NURSE ---
BiPap initiated. RT in for assistance.
[2023-02-07 08:35] LABS: PCR FLU A Negative PCR FLU A (Negative); PCR FLU B Negative PCR FLU B (Negative); PCR RSV Negative PCR RSV (Negative)
[2023-02-07 08:37] LABS: SARS PCR* Negative SARS-CoV-2 (Negative)
[2023-02-07 09:11] LABS: HCO3 VBG 31 mmol/L (21-28)
[2023-02-07 09:14] LABS: PCO2 VBG 72 mmHG (40-50); pH VBG 7.238 (7.32-7.43)
--- NOTE | 2023-02-07 09:25 | ED.NURSE ---
Tidal volumes now 800-100, minute volume ~10. Patient alert to loud voice/touch. Will continue to monitor. Plan to observe for another 30 minutes, recheck VBGs. Will assess bed availability for transfer.
[2023-02-07 10:02] LABS: HCO3 VBG 32 mmol/L (21-28); pH VBG 7.265 (7.32-7.43)
[2023-02-07 10:05] LABS: PCO2 VBG 69 mmHG (40-50)
--- NOTE | 2023-02-07 10:34 | ED.NURSE ---
Patient is more alert now, eyes open spontaneously. Requsting to use restroom. Assisted to bedside commode by this copy writer. Patient continues to have jerking motions of arms/legs. She is able to stand at bedside to remove pants though. Patient is now self-adjusting BiPap mask for comfort. Mask fit is still good, no leaks. Tidal volumes 1110-2153, minute volume 18. Remains I20/E10 at 21%
[2023-02-07 10:52] LABS: Appearance Urine Clear (Clear); Bilirubin Urine Negative (Negative); Blood Urine Negative (Negative); Color Urine Yellow (Yellow); Glucose Urine Negative (Negative); Ketones Urine Negative (Negative); Leukocyte Esterase Urine Negative (Negative); Nitrite Urine Negative (Negative); Protein Urine Negative (Negative); Urobilinogen Urine 0.2 (0.2-1.0); pH Urine 5.5 (5.0-8.5)
[2023-02-07 10:55] LABS: Amphetamine Screen Urine Negative (Negative); Barbiturate Screen Urine Negative (Negative); Benzodiazepines Screen Urine Negative (Negative); Cannabinoid Screen Urine Negative (Negative); Cocaine Screen Urine Negative (Negative); Methadone Screen Urine Negative (Negative); Methamphetamines Screen Urine Negative (Negative); Opiate Screen Urine Negative (Negative); Oxycodone Screen Urine Negative (Negative); Phencyclidine Screen Urine Negative (Negative); Tricyclic Antidepressant Urine Negative (Negative)
[2023-02-07 11:02] LABS: HCO3 VBG 30 mmol/L (21-28); PO2 VBG 31.4 mmHG (25-47); pH VBG 7.277 (7.32-7.43)
[2023-02-07 11:03] LABS: PCO2 VBG 65 mmHG (40-50)
[2023-02-07 11:12] LABS: RBC Urine 0-2 (0-2); Squamous Epithelial Cell Urine Moderate (None-Few); WBC Urine 0-2 (0-5)
[2023-02-07 11:13] LABS: Bacteria Urine Few
[2023-02-07] MEDS: IPRAT-ALBUT 0.5-2.5 MG/3 ML NEB 1 NEB IH (11:15)
[2023-02-07 13:52] LABS: HCO3 VBG 30 mmol/L (21-28); PCO2 VBG 55 mmHG (40-50); PO2 VBG 35.1 mmHG (25-47)
--- NOTE | 2023-02-07 14:57 | ED.NURSE ---
Received call from [facility]. Patient will be going to room [id number]. [facility] nurse to call shortly for report. EMS called for transport @ [phone].
== END 2023-02-07 15:33 | disposition short-term general hospital (02) ==
PROVIDERS: Family Medicine; Emergency Provider Student in an Organized Health Care Education/Training Program; PCP Family Medicine
DX: Z91.81 History of falling
CPT/HCPCS: 36415; 70450; 71275; 80048; 80076; 80306; 81001; 82077; 82140; 82803; 83605; 83735; 83880; 84484; 85025; 85610; 87086; 87631; 93005; 94640; 94660; 99285; 99291; 99292; Q9967

== ENCOUNTER 2023-02-07 15:15 | Outpatient (CLI) | payer MEDICAID, SELFPAY | END 2023-02-07 15:16 | disposition home or self-care (01) | LOC: AMB 02-16 08:48 | PROVIDERS: PCP Family Medicine; Visit Provider Emergency Medicine | DX: J44.1 Chronic obstructive pulmonary disease with (acute) exacerbation (principal) | CPT/HCPCS: A0425; A0434 ==

== ENCOUNTER 2023-03-22 07:03 | Outpatient (CLI) | payer MEDICAID, SELFPAY | END 2023-03-22 07:04 | disposition home or self-care (01) | LOC: AMB 03-28 13:54 | PROVIDERS: PCP Family Medicine; Visit Provider Family Medicine | DX: R55 Syncope and collapse (principal) | CPT/HCPCS: A0998 ==

== ENCOUNTER 2023-03-31 18:22 | Outpatient (CLI) | payer MEDICAID, SELFPAY | END 2023-03-31 18:23 | disposition home or self-care (01) | LOC: AMB 04-04 14:44 | PROVIDERS: PCP Family Medicine; Visit Provider Student in an Organized Health Care Education/Training Program | DX: R53.81 Other malaise (principal) | CPT/HCPCS: A0425; A0427 ==

== ENCOUNTER 2023-06-25 12:08 | Outpatient (CLI) | payer MEDICAID, SELFPAY | END 2023-06-25 12:09 | disposition home or self-care (01) | LOC: AMB 06-26 16:47 | PROVIDERS: PCP Family Medicine; Visit Provider Family Medicine | DX: R60.0 Localized edema (principal) | CPT/HCPCS: A0998 ==

== ENCOUNTER 2023-10-30 13:55 | Outpatient (CLI) | payer MEDICAID, SELFPAY | END 2023-10-30 13:56 | disposition home or self-care (01) | LOC: AMB 11-03 23:32 | PROVIDERS: PCP Family Medicine; Visit Provider Emergency Medicine | DX: F29 Unspecified psychosis not due to a substance or known physiological condition (principal); R44.3 Hallucinations, unspecified | CPT/HCPCS: A0998 ==

== ENCOUNTER 2024-05-11 02:52 | Outpatient (CLI) | payer MEDICAID, SELFPAY | END 2024-05-11 02:53 | disposition home or self-care (01) | LOC: AMB 05-13 02:59 | PROVIDERS: PCP Family Medicine; Visit Provider Family Medicine | DX: R41.82 Altered mental status, unspecified (principal) | CPT/HCPCS: A0425; A0427 ==

== ENCOUNTER 2024-11-28 01:14 | Outpatient (CLI) | payer OTHER, SELFPAY | END 2024-11-28 01:15 | disposition home or self-care (01) | PROVIDERS: PCP Family Medicine; Visit Provider Student in an Organized Health Care Education/Training Program | DX: R06.09 Other forms of dyspnea (principal) | CPT/HCPCS: A0425; A0427 ==